=== PATIENT | female | born 1960 | race Caucasian/White ===

== ENCOUNTER 2016-11-23 14:39 | Inpatient (IN) | payer OTHER, MEDICARE ==
[~2016-11-23] VITALS: Ht 160 cm; Wt 132.5 kg
[2016-11-23 14:47] VITALS: BP 191/97; PULSE 115; RESP 16; TEMP 97.9; O2SAT 95
--- NOTE | 2016-11-23 16:07 | PD ---
HPI Chief Complaint: Neuro Symptoms/ Deficits Time Seen by Provider: 16:07 Travel History International Travel<30 days: No Contact w/Intl Traveler<30days: No Traveled to known affect area: No History of Present Illness HPI 56-year-old female came to the emergency room with history of headache and visual symptoms. Patient says this has been going on for past 2 days. She slept pretty much the entire day yesterday. Today when she did not feel better she decided to come to the emergency room. 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 However patient says that she started getting some vision back into her left eye as of couple hours ago. Her headache currently is 8 out of 10 and it is occipital. She is awake and answering questions appropriately. Patient was tachycardic in triage. Patient speech is clear and denies any gait issues. PFSH Past Medical History Narrative Medical List of her past medical, surgical, social and family history was reviewed from the nursing note. Hx Anticoagulant Therapy: Yes (plavix) Social History Tobacco Use: No Allergies-Medications (Allergen,Severity, Reaction): Coded Allergies: Lisinopril (Unverified Allergy, Mild, 11/23/16) Morphine (Unverified Allergy, Mild, 11/23/16) anaphylaxis Penicillin (Unverified Allergy, Mild, 11/23/16) Comments List of allergies reviewed from the nursing note. Reported Meds & Prescriptions Reported Meds & Active Scripts Active Reported Escitalopram (Escitalopram Oxalate) 20 Mg Tab 20 Mg PO DAILY Amlodipine (Amlodipine Besylate) 10 Mg Tab 10 Mg PO DAILY Narrative Medication Awaiting for the nurse to do a med reconciliation. Review of Systems Except as stated in HPI: all other systems reviewed are Neg Physical Exam Narrative GENERAL: Awake, alert, obese, anxious SKIN: Warm and dry. HEAD: Atraumatic. Normocephalic. EYES: Pupils equal and round. No scleral icterus. No injection or drainage. ENT: No nasal bleeding or discharge. Mucous membranes pink and moist. NECK: Trachea midline. No JVD. CARDIOVASCULAR: Regular rate and rhythm. No murmur appreciated. RESPIRATORY: No accessory muscle use. Clear to auscultation. Breath sounds equal bilaterally. GASTROINTESTINAL: Abdomen soft, non-tender, nondistended. Hepatic and splenic margins not palpable. MUSCULOSKELETAL: No obvious deformities. No clubbing. No cyanosis. No edema. NEUROLOGICAL: Awake and alert. No obvious cranial nerve deficits. Motor grossly within normal limits. Normal speech. NIH stroke score of 0 PSYCHIATRIC: Appropriate mood and affect; insight and judgment normal. Data Data Last Documented VS Orders Electrocardiogram (11/23/16 ) Bedside Glucose QUAN.AC&HS (11/23/16 14:54) Act Partial Throm Time (Ptt) (11/23/16 16:20) Complete Blood Count With Diff (11/23/16 16:20) Basic Metabolic Panel (Bmp) (11/23/16 16:20) Troponin I (11/23/16 16:20) Urinalysis - C+S If Indicated (11/23/16 16:20) Ct Brain W/O Iv Contrast(Rout) (11/23/16 16:20) Chest, Single Ap (11/23/16 16:20) Ecg Monitoring (11/23/16 16:20) Iv Access Insert/Monitor (11/23/16 16:20) Oximetry (11/23/16 16:20) Sodium Chloride 0.9% Flush (Ns Flush) (11/23/16 16:30) Sodium Chlor 0.9% 1000 Ml Inj (Ns 1000 M (11/23/16 16:30) Sodium Chlor 0.9% 1000 Ml Inj (Ns 1000 M (11/23/16 18:15) Admit Order (Ed Use Only) (11/23/16 19:24) Labs MDM Medical Decision Making Medical Screen Exam Complete: Yes Emergency Medical Condition: Yes Medical Record Reviewed: Yes Interpretation(s) Twelve-lead EKG was reviewed by me. Normal sinus rhythm, left axis deviation, tachycardia, nonspecific ST-T wave changes. Heart rate of 108 bpm. Differential Diagnosis TIA, CVA, intracranial bleed Narrative Course 7 PM blood test results of back. Patient has leukocytosis, hyperglycemia and renal insufficiency. She was given IV fluid bolus. Patient is on Plavix and aspirin and she took those this morning. CAT scan shows old infarct. I will admit her for TIA. Awaiting for the hospitalist to call back Procedures EKG Prior to Arrival: Yes Diagnosis Primary Impression: TIA (transient ischemic attack) Qualified Code: G45.9 - Transient cerebral ischemia, unspecified type Additional Impression: Headache Qualified Code: R51 - Acute nonintractable headache, unspecified headache type Admitting Information Admitting Physician Requests: Observation Scripts Insulin Detemir Inj (Levemir Inj)1,000 unit/ 10 ML Vial10 Units SQ HS #30 VIAL Ref 0 Do not mix with any other Insulin. Prov:Zari Fernandez MD 11/28/16 Insulin Aspart Inj (Novolog Inj)1,000 Unit/10 Ml Vial1-9 Units SQ ACHS #10 ML Ref 0 Max dose at bedtime:( )units; sugars less than 70,(0)units; sugars 150-199,(1) unit; sugars 200-249,(3) units; sugars 250-299,(5) units; sugars 300-349,(7) units; sugars greater than 349,(9) units Prov:Zari Fernandez MD 11/28/16 Parenteral Therapy Supplies (Sharpsafety Sharps Contai)1 Mis Mis #1 EA .ROUTE DIRECTED Ref 0 Prov:Zari Fernandez MD 11/28/16 Glucocom Test Strips 1 Lula Lula #100 Ea .route As Directed Prov:Zari Fernandez MD 11/28/16 Lancets 1 Mis Mis #1 EA .ROUTE DIRECTED Ref 0 Prov:Zari Fernandez MD 11/28/16 Insulin Syringe/U-100/31G X 5/16" 1 ml 1 Mis Mis #1 EA .ROUTE DIRECTED Ref 0 Prov:Zari Fernandez MD 11/28/16 Blood Glucose Monitoring W/Device (Glucocom Blood Glucose Mo W/Device)1 Kit Kit #1 Kit .route As Directed Prov:Zari Fernandez MD 11/28/16 Aspirin 325 Mg [id number] Mg PO DAILY #30 TAB Ref 0 Prov:Zari Fernandez MD 11/28/16 Enoxaparin Inj (Lovenox Inj)40 Mg/0.4 Ml Syr40 Mg SQ DAILY #10 SYRINGE Ref 0 Prov:Zari Fernandez MD 11/28/16 Warfarin 7.5 Mg Tab7.5 Mg PO DAILY #30 TAB Ref 0 Prov:Zari Fernandez MD 11/28/16 Metoprolol Tartrate 25 Mg Tab12.5 Mg PO Q8HR PRN (SBP>160, DBP>95, HR>65) #60 TAB Prov:Zari Fernandez MD 11/28/16 Atorvastatin (Lipitor)80 Mg Tab80 Mg PO HS #30 TAB Prov:Zari Fernandez MD 11/28/16 Art Singh MD Nov 23, 2016 16:07 Potassium Level 4.2 MEQ/L Chloride Level 98 MEQ/L Carbon Dioxide Level 26.6 MEQ/L Anion Gap 9 MEQ/L Blood Urea Nitrogen 14 MG/DL Creatinine 1.24 MG/DL Estimat Glomerular Filtration 45 ML/MIN Rate Random Glucose 324 MG/DL Calcium Level 9.6 MG/DL Troponin I LESS THAN 0.02 NG/ML MDM Medical Decision Making Medical Screen Exam Complete: Yes Emergency Medical Condition: Yes Medical Record Reviewed: Yes Interpretation(s) Twelve-lead EKG was reviewed by me. Normal sinus rhythm, left axis deviation, tachycardia, nonspecific ST-T wave changes. Heart rate of 108 bpm. Differential Diagnosis TIA, CVA, intracranial bleed Narrative Course 7 PM blood test results of back. Patient has leukocytosis, hyperglycemia and renal insufficiency. She was given IV fluid bolus. Patient is on Plavix and aspirin and she took those this morning. CAT scan shows old infarct. I will admit her for TIA. Awaiting for the hospitalist to call back Procedures EKG Prior to Arrival: Yes Diagnosis Primary Impression: TIA (transient ischemic attack) Qualified Code: G45.9 - Transient cerebral ischemia, unspecified type Additional Impression: Headache Qualified Code: R51 - Acute nonintractable headache, unspecified headache type Admitting Information Admitting Physician Requests: Observation Art Singh MD Nov 23, 2016 16:07
[2016-11-23 16:15] VITALS: BP 139/77; PULSE 103; RESP 16; O2SAT 97
[2016-11-23] MEDS ORDERED: SODIUM CHLOR 0.9% 1000 ML INJ 1,000 ML IV ONE ×2 (16:30→18:15)
[2016-11-23] MEDS ORDERED: SODIUM CHLORIDE 0.9% FLUSH 10 ML FLUSH IVF PRN (16:30)
--- NOTE | 2016-11-23 16:50 | RADRPT ---
EXAM DATE/TIME: 11/23/2016 16:31 [facility] COMPARISON: No previous studies available for comparison. INDICATIONS : Short of breath MEDICAL HISTORY : Cardiovascular disease. SURGICAL HISTORY : None. ENCOUNTER: Initial ACUITY: 2 days PAIN SCORE: 0/10 LOCATION: chest FINDINGS: A single view of the chest demonstrates the lungs to be symmetrically aerated without evidence of mas s, infiltrate or effusion. The cardiomediastinal contours are unremarkable. Osseous structures are intact. CONCLUSION: No acute disease. Gera Hoffman MD on November 23, 2016 at 16:48 Board Certified Radiologist. This report was verified electronically.
--- NOTE | 2016-11-23 17:11 | RADRPT ---
EXAM DATE/TIME: 11/23/2016 16:50 [facility] COMPARISON: No previous studies available for comparison. INDICATIONS : Persistent headache, left eye visual disturbances. RADIATION DOSE: 40.04 CTDIvol (mGy) MEDICAL HISTORY : None SURGICAL HISTORY : None. ENCOUNTER: Initial ACUITY: 2 days PAIN SCALE: 7/10 LOCATION: cranial TECHNIQUE: Multiple contiguous axial images were obtained of the head. Using automated exposure control and adj ustment of the mA and/or kV according to patient size, radiation dose was kept as low as reasonably a chievable to obtain optimal diagnostic quality images. FINDINGS: CEREBRUM: The ventricles are normal for age. Chronic changes with periventricular small vessel ischemic demyeli nation and bilateral old lacunar-type infarcts involving the basal ganglia and thalamic nuclei. Old r ight YARN WINDER infarct as well. No extra-axial fluid collections are seen. POSTERIOR FOSSA: The cerebellum and brainstem are intact. The 4th ventricle is midline. The cerebellopontine angle i s unremarkable. EXTRACRANIAL: The visualized portion of the orbits is intact. SKULL: The calvaria is intact. No evidence of skull fracture. CONCLUSION: 1. Chronic changes including periventricular small vessel ischemic demyelination in bilateral old bas al ganglia and thalamic lacunar type infarct. 2. Old right YARN WINDER infarct. This could produce a left visual field deficit which may explain current cl inical symptoms. 3. No acute intracranial process. Vlad Gonzales MD on November 23, 2016 at 17:06 Board Certified Radiologist. This report was verified electronically.
[2016-11-23 17:28] LABS: AUTOMATED NEUTROPHIL # 9.3 TH/MM3 (1.8-7.7); BASOPHIL # 0.1 TH/MM3 (0-0.2); BASOPHIL % 0.7 % (0.0-2.0); EOSINOPHIL # 0.2 TH/MM3 (0-0.4); EOSINOPHIL % 1.7 % (0.0-4.0); HEMATOCRIT 43.1 % (35.0-46.0); HEMO FLAGS DIFF FINAL; LYMPH % 25.8 % (9.0-44.0); LYMPHOCYTE # 3.6 TH/MM3 (1.0-4.8); MEAN CELL VOLUME 75.1 FL (80.0-100.0); MEAN CORPUSCULAR HEMOGLOBIN 25.3 PG (27.0-34.0); MEAN CORPUSCULAR HGB CONC 33.7 % (32.0-36.0); MONO % 5.1 % (0.0-8.0); NEUT % 66.7 % (16.0-70.0); PLATELET COUNT 357 TH/MM3 (150-450); RED BLOOD COUNT 5.74 MIL/MM3 (4.00-5.30); RED CELL DISTRIBUTION WIDTH 14.4 % (11.6-17.2)
[2016-11-23 17:44] LABS: APTT (PATIENT) 24.9 SEC (24.3-30.1)
[2016-11-23 17:58] LABS: ANION GAP 9 MEQ/L (5-15); BICARBONATE 26.6 MEQ/L (21.0-32.0); BLOOD UREA NITROGEN 14 MG/DL (7-18); CHLORIDE 98 MEQ/L (98-107); GLOMERULAR FILTRATION RATE 45 ML/MIN (>89); SODIUM (NA) 134 MEQ/L (136-145)
[2016-11-23 17:59] LABS: POTASSIUM 4.2 MEQ/L (3.5-5.1)
[2016-11-23] MEDS ORDERED: CLOP75TA PO (19:04)
[2016-11-23] MEDS ORDERED: AMLO10TA2 PO (19:04)
[2016-11-23 19:05] VITALS: O2SAT 98
[2016-11-23] MEDS ORDERED: ESCI20TA PO (19:05)
[2016-11-23 19:13] VITALS: BP 140/70; PULSE 98; RESP 18; O2SAT 96
[2016-11-23 19:44] LABS: BACTERIA, URINE RARE /hpf; BLOOD, URINE MOD (NEG); COMMENT (UR) CATH-CULTURE IND; CULTURE IF INDICATED CATH CULTURE IND; GLUCOSE,URINE 1000 mg/dL (NEG); KETONE, URINE 10 mg/dL (NEG); MUCUS URINE FEW /lpf (OCC); NITRITE,URINE NEG (NEG); PH, URINE 5.5 (5.0-8.5); SQUAMOUS EPITHELIAL CELL URINE 15 /hpf (0-5); URINE COLOR YELLOW (YELLW/STRAW)
[2016-11-23] MEDS ORDERED: DEXTROSE 50% IN WATER 50 ML VIAL(D50) IV PUSH PRN (19:45)
[2016-11-23] MEDS ORDERED: GLUCAGON 1 MG/ML VIAL OTHER PRN (19:45)
[2016-11-23] MEDS ORDERED: SODIUM CHLORIDE 0.9% FLUSH 10 ML FLUSH IV FLUSH PRN (19:45)
[2016-11-23] MEDS: INSULIN ASPART SUPPLEMENTAL SCALE SQ SCH (21:00)
[2016-11-23] MEDS: SODIUM CHLORIDE 0.9% FLUSH 10 ML FLUSH IV FLUSH SCH (21:00)
[2016-11-23 21:39] VITALS: BP 141/84; PULSE 96; RESP 20; TEMP 98; O2SAT 94
[2016-11-23 22:28] LABS: HEMOGLOBIN A1a 1.3 %; HEMOGLOBIN A1b 1.5 %; HEMOGLOBIN Ao 74.4 %; HEMOGLOBIN F 1.8 %; HEMOGLOBIN LA1C 3.7 %; HEMOGLOBIN P3 5.3 %
--- NOTE | 2016-11-23 23:01 | RADRPT ---
EXAM DATE/TIME: 11/23/2016 22:17 [facility] COMPARISON: No previous studies available for comparison. INDICATIONS : TIA. MEDICAL HISTORY : Hypertension. Hypercholesterolemia. TIA. SURGICAL HISTORY : Right knee. Vaginal ablation. ENCOUNTER: Subsequent ACUITY: 2 day PAIN SCORE: 3/10 LOCATION: cranial TECHNIQUE: Multiplanar, multisequence MRI of the brain was performed without contrast. FINDINGS: There is a small acute lacunar infarct in left basal ganglia. There are multiple remote infarcts invo lving the right occipital lobe and also small remote infarcts in the left frontal lobe, left parietal lobe. Moderate white matter ischemic changes. No mass effect or shift. No abnormal extra-axial fluid collections. Both globes are intact. CONCLUSION: 1. Small subcentimeter acute lacunar infarct left basal ganglia. 2. Multiple small remote infarcts involving right occipital lobe, left frontal lobe and left parietal lobe. 3. Moderate chronic white matter ischemic change. Benoit Ruth MD on November 23, 2016 at 22:56 Board Certified Radiologist. This report was verified electronically.
--- NOTE | 2016-11-23 23:54 | HHI.HP ---
[facility] Veronika Chinchilla MD Admission Diagnosis TIA, headache Diagnoses: (1) Acute lacunar infarction (2) Headache Chief Complaint: headache and visual changes Travel History International Travel<30 Days: No Contact w/Intl Traveler <30 Da: No Traveled to Known Affected Are: No History of Present Illness Ms. Galeana is a 56 year-old female with a history of CVA, hyperlipidemia, depression and hypertension who presented to the emergency room for evaluation of headache with visual impairment on 11/23/2016. Head CT shows chronic changes including periventricular small vessel ischemic demyelination and bilateral old basal ganglia and thalamus lacunar type infarct. Old right HOME INSPECTOR infarct (might produce left visual field deficit). No acute intracranial process. The patient is seen in the CDU. She and her provided the history. The patient woke up with severe posterior headache yesterday that progressively got worse and not better. She reports that because of a prior stroke, she had lost her left peripheral vision. She said her left peripheral vision was gone for 3 years and today it came back after she came to the hospital and while she was sitting in the waiting room. The patient's also reports that the patient slept all day on Sunday and Sunday. He says about a month ago, she had some trouble speaking and a syncopal episode. There is also report of loose stools for about 2 weeks. The patient is not sure if her stools are black or red colored. She denies any recent antibiotic usage. She denies hematuria, frequency, or dysuria. She does report some urgency with incontinence couple of nights ago which has now resolved. Denies fever but states she's felt warm. Denies localized weakness, paresthesias, chest pain, shortness of breath. She had dry heaves 2 days ago. Denies any history of diabetes, coronary artery disease liver or kidney problems , cancers, thyroid problems, seizures. She reports asthma without exacerbation since childhood. Was driven to ER in private vehicle. Review of Systems Except as stated in HPI: all other systems reviewed are Neg Past Family Social History Past Medical History Hypertension Post-CVA depression CVA Asthma without exacerbation since childhood Past Surgical History Cholecystectomy Vaginal ablation . Reported Medications Reported Meds & Active Scripts Active Reported Escitalopram (Escitalopram Oxalate) 20 Mg Tab 20 Mg PO DAILY Clopidogrel (Clopidogrel Bisulfate) 75 Mg Tab 75 Mg PO DAILY Amlodipine (Amlodipine Besylate) 10 Mg Tab 10 Mg PO DAILY . Allergies: Coded Allergies: Lisinopril (Unverified Allergy, Mild, 11/23/16) Morphine (Unverified Allergy, Mild, 11/23/16) anaphylaxis Penicillin (Unverified Allergy, Mild, 11/23/16) Active Ordered Medications Current Medications Sodium Chloride 2 ml 2 ml UNSCH PRN IVF FLUSH AFTER USING IV ACCESS; Start at 16:30; Stop 11/23/16 at 19:45; Status DC Sodium Chloride 1,000 ml @ 999 mls/hr BOLUS ONCE IV Last administered on 11/23 17:19; Start 11/23/16 at 16:30; Stop 11/23/16 at 17:30; Status DC Sodium Chloride (NS 1000 ml Inj) 1,000 ml @ 999 mls/hr BOLUS ONCE IV Last administered on 11/23/16 19:12; Start 11/23/16 at 18:15; Stop 11/23/16 at 19:15 ; Status DC Sodium Chloride (NS Flush) 2 ml BID IV FLUSH Last administered on 11/23/16 21: 00; Start 11/23/16 at 21:00 Sodium Chloride (NS Flush) 2 ml UNSCH PRN IV FLUSH FLUSH AFTER USING IV ACCESS ; Start 11/23/16 at 19:45 Insulin Aspart (NovoLOG SUPPLEMENTAL SCALE) 1 ACHS SLIDING SCALE SQ Last administered on 11/23/16 21:00; Start 11/23/16 at 21:00 Dextrose (D50w (Vial) Inj) 25 ml UNSCH PRN IV PUSH HYPOGLYCEMIA-SEE COMMENTS; Start 11/23/16 at 19:45 Glucagon (Glucagon Inj) 1 mg UNSCH PRN OTHER HYPOGLYCEMIA-SEE COMMENTS; Start 11/23/16 at 19:45 . Family History Youngest sister from breast cancer . Social History Tobacco: denies Alcohol: denies Illicit Drugs: denies Patient recently relocated from [place] . Physical Exam Vital Signs Vital Signs Date Time Temp Pulse Resp B/P Pulse Ox O2 Delivery O2 Flow Rate FiO2 11/23/16 21:39 98.0 96 20 141/84 94 11/23/16 19:13 98 18 140/70 96 Room Air 11/23/16 19:05 98 Room Air 11/23/16 16:15 103 16 139/77 97 11/23/16 14:47 97.9 115 16 191/97 95 Physical Exam GENERAL: This is a well-nourished, well-developed patient, in no apparent distress. SKIN: No rashes, ecchymoses or lesions. Cool and dry. HEAD: Atraumatic. Normocephalic. EYES: No scleral icterus. No injection or drainage. ENT: Nose without bleeding, purulent drainage. NECK: Trachea midline. No JVD or lymphadenopathy. CARDIOVASCULAR: Regular rate and rhythm without murmurs, gallops, or rubs. Unequal swelling in legs: left > right. RESPIRATORY: Clear to auscultation. Breath sounds equal bilaterally. No wheezes , rales, or rhonchi. GASTROINTESTINAL: Abdomen soft, non-tender, nondistended. No guarding. MUSCULOSKELETAL: Extremities without clubbing, cyanosis, or edema. No calf tenderness. NEUROLOGICAL: Awake and alert. Motor and sensory grossly within normal limits. Normal speech. Laboratory Laboratory Tests Test 11/23/16 17:16 White Blood Count 14.0 Red Blood Count 5.74 Hemoglobin 14.5 Hematocrit 43.1 Mean Corpuscular Volume 75.1 Mean Corpuscular Hemoglobin 25.3 Mean Corpuscular Hemoglobin 33.7 Concent Red Cell Distribution Width 14.4 Platelet Count 357 Mean Platelet Volume 8.6 Neutrophils (%) (Auto) 66.7 Lymphocytes (%) (Auto) 25.8 Monocytes (%) (Auto) 5.1 Eosinophils (%) (Auto) 1.7 Basophils (%) (Auto) 0.7 Neutrophils # (Auto) 9.3 Lymphocytes # (Auto) 3.6 Monocytes # (Auto) 0.7 Eosinophils # (Auto) 0.2 Basophils # (Auto) 0.1 CBC Comment DIFF FINAL Differential Comment Activated Partial 24.9 Thromboplast Time Urine Color YELLOW Urine Turbidity HAZY Urine pH 5.5 Urine Specific [place] 1.026 Urine Protein 30 Urine Glucose (UA) 1000 Urine Ketones 10 Urine Occult Blood MOD Urine Nitrite NEG Urine Bilirubin NEG Urine Urobilinogen LESS THAN 2.0 Urine Leukocyte Esterase LARGE Urine RBC 8 Urine WBC 4 Urine Squamous Epithelial 15 Cells Urine Bacteria RARE Urine Mucus FEW Microscopic Urinalysis Comment CATH-CULTURE IND Sodium Level 134 Potassium Level 4.2 Chloride Level 98 Carbon Dioxide Level 26.6 Anion Gap 9 Blood Urea Nitrogen 14 Creatinine 1.24 Estimat Glomerular Filtration 45 Rate Random Glucose 324 Hemoglobin A1c 11.8 Calcium Level 9.6 Troponin I LESS THAN 0.02 Date/Time Procedure Status Source Growth 11/23/16 17:16 Urine Culture Received Urine Catheterized Urine Pending Result Diagram: 11/23/16 1716 11/23/16 1716 Imaging Last Impressions Head CT 11/23/16 1620 Signed Impressions: Service Date/Time: November 16:50 - CONCLUSION: 1. Chronic changes including periventricular small vessel ischemic demyelination in bilateral old basal ganglia and thalamic lacunar type infarct. 2. Old right HOME INSPECTOR infarct. This could produce a left visual field deficit which may explain current clinical symptoms. 3. No acute intracranial process. Vlad Gonzales MD Chest X-Ray 11/23/16 1620 Signed Impressions: Service Date/Time: November 16:31 - CONCLUSION: No acute disease. Gera Hoffman MD Brain MRI 11/23/16 0000 Signed Impressions: Service Date/Time: November 22:17 - CONCLUSION: 1. Small subcentimeter acute lacunar infarct left basal ganglia. 2. Multiple small remote infarcts involving right occipital lobe, left frontal lobe and left parietal lobe. 3. Moderate chronic white matter ischemic change. Benoit Ruth MD . Assessment and Plan Problem List: (1) Acute lacunar infarction ICD Code: I63.9 Status: Acute (2) Headache ICD Code: R51 Status: Acute (3) Leukocytosis ICD Code: D72.829 Status: Acute (4) Hyperglycemia ICD Code: R73.9 Status: Acute (5) Type 2 diabetes mellitus ICD Code: E11.9 Status: Chronic (6) Acute renal insufficiency ICD Code: N28.9 Status: Acute Assessment and Plan Ms. Galeana is a 56 year-old female with a history of CVA, hyperlipidemia, depression and hypertension who presented to the emergency room for evaluation of headache with visual impairment on 11/23/2016. Acute lacunar infarct Headache with visual impairment - Head CT shows chronic changes including periventricular small vessel ischemic demyelination and bilateral old basal ganglia and thalamus lacunar type infarct. Old right HOME INSPECTOR infarct (might produce left visual field deficit). No acute intracranial process. - Continuous cardiac telemetry to monitor for cardiac arrhythmia - OT, PT, and ST - Check echocardiogram to evaluate patients cardiac structure and function - Carotid ultrasound to rule out carotid atherosclerosis - MRI brain without contrast - Monitor neuro checks and vital signs every 2 hours 12 then every 4 hours - Check lipid profile and hemoglobin A1c - Diet nothing by mouth until patient passes bedside swallowing evaluation by nursing - Consults stroke Navigator - Neurology consultation - Heparin drip - allow for permissive hypertension - keep HOB flat to promote cerebral perfusion Leukocytosis- stress response versus infection - WBC 14.0 with elevated neutrophil number - Abnormal urinalysis with urinary culture pending - follow results - Repeat CBC in a.m. and follow trends Hyperglycemia - Blood glucose 324 - Check hemoglobin A1c- follow results - Accu-Cheks before meals and at bedtime with low-dose NovoLog sliding scale coverage - Hypoglycemia treatment protocol ordered - Monitor blood glucose trends and adjust treatments as needed - diabetic diet - 1999 ADA conservative carbs Acute renal insufficiency - BUN 14, creatinine 1.24, estimated GFR 45 - Has received NS boluses totaling 2 liters in ER - Monitor I and Os qshift - Repeat BMP in a.m. and follow trends in renal indices - Avoid nephrotoxins DVT prophylaxis - heparin drip Written by Aliza Hanks, acting as scribe for Dr. Sheffield on 11/23/16 at 23:36. All or portions of this note were transcribed by scribe [Aliza Hanks]. I, Dr. Tam Sheffield personally performed the history, physical exam, and medical decision making; and confirmed the accuracy of the information in the transcribed note. Authenticated by Dr. Tam Sheffield on 11/23/16 at 23:36. MRI result reviewed toward end of visit: Small subcentimeter acute lacunar infarct left basal ganglia. - changed status from observation to inpatient Discussed Condition With ER physician, RN, patient, patient's . Problem Qualifiers (1) Headache: Qualified Code: R51 - Acute nonintractable headache, unspecified headache type (2) Type 2 diabetes mellitus: Aliza Hanks Nov 23, 2016 23:54 Tam Sheffield MD Nov 24, 2016 09:21
[2016-11-24] MEDS ORDERED: HEPARIN-D5W INJ 250 ML IV SCH
--- NOTE | 2016-11-24 00:08 | RADRPT ---
EXAM DATE/TIME: 11/23/2016 23:03 [facility] COMPARISON: No previous studies available for comparison. INDICATIONS : Transient ischemic attack. MEDICAL HISTORY : Hypercholesterolemia. Hypertension. Anticoagulant therapy, Plavix. Depression. Transient ischemic a ttacks. SURGICAL HISTORY : Cholecystectomy. ENCOUNTER: Initial ACUITY: 1 day PAIN SCORE: 0/10 LOCATION: Bilateral neck PEAK SYSTOLIC VELOCITIES (cm/sec): ICA/CCA RATIO: Right: 0.8 Left: 0.5 ICA: Right: 68 Left: 56 CCA: Right: 90 Left: 103 ECA: Right: 132 Left: 150 VERTEBRAL: Right: 49 antegrade Left: 54 antegrade Elevated flow velocities and ICA/CCA ratios have been found to correlate with increased degrees of vessel stenosis, calculated as percentage of diameter relative to a normal segment of distal ICA/CCA FINDINGS: RIGHT CAROTID: No significant stenosis is visualized. The waveforms are within normal limits. LEFT CAROTID: No significant stenosis is visualized. The waveforms are within normal limits. VERTEBRAL ARTERIES: Antegrade flow is seen in both vertebral arteries. MISCELLANEOUS: None. CONCLUSION: 1. Patent carotid arteries bilaterally. 2. Antegrade flow involving both vertebral arteries. Jose Campos Jr., MD on November 24, 2016 at 0:04 Board Certified Radiologist. This report was verified electronically.
[2016-11-24 01:46] LABS: APTT (PATIENT) 26.2 SEC (24.3-30.1)
--- NOTE | 2016-11-24 02:02 | RADRPT ---
EXAM DATE/TIME: 11/24/2016 00:59 [facility] COMPARISON: No previous studies available for comparison. INDICATIONS : Bilateral leg edema. MEDICAL HISTORY : Hypercholesterolemia. Hypertension. Strokes. Anticoagulant therapy, Plavix. Depression. SURGICAL HISTORY : Cholecystectomy. ENCOUNTER: Initial ACUITY: 1 day PAIN SCORE: 0/10 LOCATION: Bilateral leg. TECHNIQUE: Venous ultrasound of the left and right leg was performed from the inguinal ligament to the proximal calf. Real-time, color Doppler and spectral tracing, compression and augmentation techniques were us ed. FINDINGS: RIGHT LEG: There is normal compressibility of the deep venous system from the inguinal region to the proximal ca lf. No echogenic clot is seen in the lumen of the common femoral, femoral, popliteal, and posterior tibial veins. There is a normal response of the venous system to proximal and distal augmentation an d respiration. LEFT LEG: There is normal compressibility of the deep venous system from the inguinal region to the proximal ca lf. No echogenic clot is seen in the lumen of the common femoral, femoral, popliteal, and posterior tibial veins. There is a normal response of the venous system to proximal and distal augmentation an d respiration. CONCLUSION: Normal examination. Jose Campos Jr., MD on November 24, 2016 at 1:59 Board Certified Radiologist. This report was verified electronically.
[2016-11-24 03:45] VITALS: BP 130/65; PULSE 86; RESP 20; TEMP 98.2; O2SAT 93
[2016-11-24] MEDS: INSULIN ASPART SUPPLEMENTAL SCALE SQ SCH ×3 (07:00→22:17)
[2016-11-24 07:48] VITALS: BP 146/70; PULSE 81; RESP 19; TEMP 98.3; O2SAT 94
--- NOTE | 2016-11-24 08:16 | PD.CONS ---
History of Present Illness Service Neurology Consult Requested By medical Reason for Consult tia, headache Primary Care Physician Veronika Chinchilla MD History of Present Illness 56 year-old female presents for evaluation of occipital cantu x 2 days. throbbing, associated with fatigue. improved this am. no associated features. no significant photo/phonophobia. no weakness, no sensory changes, no vertigo. hx of previous stroke, 3 years ago with left visual field loss. had mri, echo with bubble jet study, and states no clear cause found except possibly 2/2 htn. takes plavix daily for it. on disability for stroke. feels well this am. Review of Systems Except as stated in HPI: all other systems reviewed are Neg Past Family Social History Past Medical History Hypertension Post-CVA depression CVA Asthma without exacerbation since childhood Past Surgical History Cholecystectomy Vaginal ablation . Reported Medications Reported Meds & Active Scripts Active Reported Escitalopram (Escitalopram Oxalate) 20 Mg Tab 20 Mg PO DAILY Clopidogrel (Clopidogrel Bisulfate) 75 Mg Tab 75 Mg PO DAILY Amlodipine (Amlodipine Besylate) 10 Mg Tab 10 Mg PO DAILY . Allergies: Coded Allergies: Lisinopril (Unverified Allergy, Mild, 11/23/16) Morphine (Unverified Allergy, Mild, 11/23/16) anaphylaxis Penicillin (Unverified Allergy, Mild, 11/23/16) Family History m,f with hx of strokes Social History Tobacco: denies Alcohol: denies Illicit Drugs: denies Patient recently relocated from [place] Review of Systems All other ROS: ROS reviewed as documented in chart Past Family Social History Allergies: Coded Allergies: Lisinopril (Unverified Allergy, Mild, 11/23/16) Morphine (Unverified Allergy, Mild, 11/23/16) anaphylaxis Penicillin (Unverified Allergy, Mild, 11/23/16) Active Ordered Medications Current Medications Medications (Trade) Dose Ordered Sig/Janice Route Start Time Stop Time Status Last Admin (NS Flush) 2 ml BID IV FLUSH 11/23/16 21:00 11/23/16 21:00 (NS Flush) 2 ml UNSCH PRN IV FLUSH 11/23/16 19:45 (D50w (Vial) Inj) 25 ml UNSCH PRN IV PUSH 11/23/16 19:45 Glucagon 1 mg 1 mg UNSCH PRN OTHER 11/23/16 19:45 (Heparin-D5W Inj) 250 ml @ 0 mls/hr TITRATE IV 11/24/16 00:00 11/24/16 00:21 Exam I&O / VS Vital Signs Date Time Temp Pulse Resp B/P Pulse Ox O2 Delivery O2 Flow Rate FiO2 11/24/16 07:48 98.3 81 19 146/70 94 11/24/16 03:45 98.2 86 20 130/65 93 11/23/16 21:39 98.0 96 20 141/84 94 11/23/16 19:13 98 18 140/70 96 Room Air 11/23/16 19:05 98 Room Air 11/23/16 16:15 103 16 139/77 97 11/23/16 14:47 97.9 115 16 191/97 95 General: Alert and Oriented, No acute distress Eye: EOMI Respiratory: Non-labored respirations Cardiology: Normal rate Neurologic: Alert, Oriented, Normal sensory, Normal motor, Normal DTR's Psychiatric: Cooperative, Appropriate mood & affect, Normal judgement, Non- suicidal Exam Comments ox 3. articulate, follows, neck supple. left HH, face sym, no focal weakness, msr sym, no clonus, planter flexor Review/Management Diagnosis/Plan: (1) Acute ischemic left MCA stroke Plan: multiple strokes, bihemispheric failed plavix previous w/u in [place] negative, including bubble jet study i'm concerned about a hypercoag state/embolic cause recs coumadin; bridge with aspirin until inr >1.8, then stop aspirin and hep subq check mra brain lizette with cardiology hypercoag panel p.t. wt loss/exercise/dm, htn/lipid control, ldl <70 (2) Chronic ischemic right ALTERATION HAND stroke Plan: 2013 tx'd in [facility] on plavix (3) Chronic ischemic left ALTERATION HAND stroke (4) Type 2 diabetes mellitus Plan: hba1c 11 uncontrolled (5) HTN (hypertension) (6) Depression Plan: post-stroke related Problem Qualifiers (1) Type 2 diabetes mellitus: (2) HTN (hypertension): Qualified Code: I10 - Essential hypertension (3) Depression: Qualified Code: F32.9 - Depression, unspecified depression type Abdoulaye Wong MD Nov 24, 2016 08:16
[2016-11-24 08:41] LABS: APTT (PATIENT) 26.8 SEC (24.3-30.1)
[2016-11-24 08:56] LABS: HDL CHOLESTEROL 29.3 MG/DL (40.0-60.0)
[2016-11-24] MEDS: SODIUM CHLORIDE 0.9% FLUSH 10 ML FLUSH IV FLUSH SCH ×2 (09:00→21:00)
[2016-11-24 09:49] LABS: PROTHROMBIN TIME - PATIENT 10.8 SEC (9.8-11.6)
--- NOTE | 2016-11-24 12:01 | HHI.PR ---
Subjective Remarks Follow up for headache, acute CVA. The patient reports feeling better today. Her headache was located in the occipital area, however resolved today. She also states her vision is back to normal. She has no other medical complaints at this time. Objective Vitals Vital Signs Date Time Temp Pulse Resp B/P Pulse Ox O2 Delivery O2 Flow Rate FiO2 11/24/16 07:48 98.3 81 19 146/70 94 11/24/16 03:45 98.2 86 20 130/65 93 11/23/16 21:39 98.0 96 20 141/84 94 11/23/16 19:13 98 18 140/70 96 Room Air 11/23/16 19:05 98 Room Air 11/23/16 16:15 103 16 139/77 97 11/23/16 14:47 97.9 115 16 191/97 95 Result Diagram: 11/23/16 1716 11/23/16 171 Imaging Last Impressions Lower Extremity Ultrasound 11/24/16 0000 Signed Impressions: Service Date/Time: Thursday, November 24, 2016 00:59 - CONCLUSION: Normal examination. Jose Campos Jr., MD Head CT 11/23/16 1620 Signed Impressions: Service Date/Time: November 16:50 - CONCLUSION: 1. Chronic changes including periventricular small vessel ischemic demyelination in bilateral old basal ganglia and thalamic lacunar type infarct. 2. 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 This could produce a left visual field deficit which may explain current clinical symptoms. 3. No acute intracranial process. Vlad Gonzales MD Chest X-Ray 11/23/16 1620 Signed Impressions: Service Date/Time: November 16:31 - CONCLUSION: No acute disease. Gera Hoffman MD Carotid Artery Ultrasound 11/23/16 0000 Signed Impressions: Service Date/Time: November 23:03 - CONCLUSION: 1. Patent carotid arteries bilaterally. 2. Antegrade flow involving both vertebral arteries. Jose Campos Jr., MD Brain MRI 11/23/16 0000 Signed Impressions: Service Date/Time: November 22:17 - CONCLUSION: 1. Small subcentimeter acute lacunar infarct left basal ganglia. 2. Multiple small remote infarcts involving right occipital lobe, left frontal lobe and left parietal lobe. 3. Moderate chronic white matter ischemic change. Benoit Ruth MD Objective Remarks GENERAL: Well-nourished, well-developed pleasant obese middle aged female patient in [facility]. SKIN: Warm and dry. No rash. HEENT: Normocephalic. Atraumatic. Pupils equal and round. No scleral icterus. No injection or drainage. Mucous membranes pink and moist. NECK: Supple. Trachea midline. CARDIOVASCULAR: Regular rate and rhythm. S1, S2 noted. No murmur appreciated. RESPIRATORY: No accessory muscle use. Clear to auscultation. Breath sounds equal bilaterally. GASTROINTESTINAL: Abdomen soft, non-tender, nondistended. Normoactive bowel sounds x4. MUSCULOSKELETAL: No obvious deformities. Extremities without clubbing, cyanosis , or edema. NEUROLOGICAL: Awake and alert. No obvious cranial nerve deficits. Motor grossly within normal limits. 5/5 muscle strength in bilateral upper and lower extremities. Normal speech. No facial droop, lid lag, tongue deviation. PSYCHIATRIC: Appropriate mood and affect; insight and judgment normal. Medications and IVs Current Medications Medications (Trade) Dose Ordered Sig/Janice Route Start Time Stop Time Status Last Admin (NS Flush) 2 ml BID IV FLUSH 11/23/16 21:00 11/23/16 21:00 (NS Flush) 2 ml UNSCH PRN IV FLUSH 11/23/16 19:45 (D50w (Vial) Inj) 25 ml UNSCH PRN IV PUSH 11/23/16 19:45 (Glucagon Inj) 1 mg UNSCH PRN OTHER 11/23/16 19:45 (Ecotrin Ec) 325 mg DAILY PO 11/24/16 09:00 Warfarin Sodium 5 mg 5 mg DAILY@16 PO 11/24/16 16:00 UNV (Coumadin Consult Pharmacy) 0 ml @ 0 mls/hr UNSCH XX 11/24/16 08:15 (Heparin Inj) 5,000 units BID SQ 11/24/16 09:00 Urinary Catheter: No Vascular Central Line Catheter: No A/P Problem List: (1) Acute lacunar infarction ICD Code: I63.9 Status: Acute (2) Headache ICD Code: R51 Status: Acute (3) Leukocytosis ICD Code: D72.829 Status: Acute (4) Hyperglycemia ICD Code: R73.9 Status: Acute (5) Type 2 diabetes mellitus ICD Code: E11.9 Status: Chronic (6) Acute renal insufficiency ICD Code: N28.9 Status: Acute Assessment and Plan 56 year-old female with a history of CVA, hyperlipidemia, depression and hypertension who presented to the emergency room for evaluation of headache with visual impairment on 11/23/2016. 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 No acute findings - Brain MRI images reviewed, shows small subcentimeter acute lacunar infarct L basal ganglia; multiple small remote infarcts R occipital, L front, L parietal - Monitor on telemetry, NIHSS, Neuro checks, kept HOB x24 hrs flat to promote cerebral perfusion, allow permissive hypertension for now - OT, PT, and ST - Check echocardiogram - Carotid ultrasound unremarkable - Lipid profile with Triglycerides 207, Cholesterol 201, LDL 130 (goal < 70) and hemoglobin A1c 11.8 - Check LFTs and start Lipitor 80mg hs - Consults stroke Navigator, rehab medicine - Neurology consultation - Heparin drip, per Neuro: start coumadin; bridge with aspirin until INR >1.8, then stop aspirin and hep subq - Neuro requests RHEA, consulted cardiology - hypercoagulable work up in process Leukocytosis- stress response versus UTI - WBC 14.0 with elevated neutrophils - Abnormal urinalysis, see below - Repeat CBC in a.m. and follow trends UTI - urine culture with Group B Strep - patient with PCN allergy, will start Ciprofloxacin 500mg po q12h x3days - follow final urine culture Diabetes Mellitus, diagnosed this admission - Blood glucose 324, Hemoglobin A1c- 11.8 - Accu-Cheks and cover with NovoLog sliding scale coverage - Hypoglycemia treatment protocol ordered - diabetic diet - 1999 ADA conservative carbs - still uncontrolled, increased SSI to medium dose and start Levemir 10u hs - Consult tobacco educator and personal lines appraiser JOSETTE - BUN 14, creatinine 1.24, estimated GFR 45 - s/p IVF NS boluses totaling 2 liters in ER - Monitor I and Os qshift - Repeat BMP in a.m. and follow trends in renal indices - Avoid nephrotoxins DVT prophylaxis - heparin Written by Meaghan Lovelace, acting as scribe for Dr. Fernandez on 11/24/16 at 11:55. All or portions of this note were transcribed by scribe Meaghan Radu. I, Dr. Zari Fernandez personally performed the history, physical exam, and medical decision making; and confirmed the accuracy of the information in the transcribed note. Authenticated by Dr. Zari Fernandez on 11/24/16 at 11:55. Discharge Planning Admit to inpatient, possible discharge in 3-4 days. Problem Qualifiers (1) Headache: Qualified Code: R51 - Acute nonintractable headache, unspecified headache type (2) Type 2 diabetes mellitus: Meaghan Lovelace PA-C Nov 24, 2016 12:01 Zari Fernandez MD Nov 24, 2016 18:42
[2016-11-24] MEDS: ASPIRIN EC 325 MG TABEC PO SCH (12:07)
[2016-11-24] MEDS: HEPARIN SODIUM - SQ 10,000 UNITS/ML VIAL SQ SCH ×2 (12:07→22:48)
--- NOTE | 2016-11-24 13:44 | RADRPT ---
EXAM DATE/TIME: 11/24/2016 11:24 [facility] COMPARISON: US CAROTID ARTERIES, November 23, 2016, 23:03. MRI BRAIN W/O CONTRAST, November 23, 2016, 22:17. INDICATIONS : CVA. MEDICAL HISTORY : Hypertension. SURGICAL HISTORY : Rt knee arthroscopy. ENCOUNTER: Initial ACUITY: 2 day PAIN SCORE: 2/10 LOCATION: head Please note a normal MRA of the brain does not entirely exclude the possibility of a small aneurysm, nor the possibility of distal intracranial vessel disease. TECHNIQUE: 3D time of flight MRA was performed. Source images, multiplanar STS MIP, and 3D volume MIP reconstru ctions were reviewed. FINDINGS: The exam demonstrates areas of signal dropout in the M1 segment on the left and the posterior cerebra ls bilaterally. This is probably secondary to motion artifact. No large or central vessel occlusion i dentified. CONCLUSION: 1. No large or central vessel occlusion identified. 2. Patchy areas of signal dropout in the left M1 segment and the posterior cerebrals bilaterally prob ably related to motion artifact. If symptoms persist, CT angiography could be performed for more defi nitive assessment Elias Bowen MD on November 24, 2016 at 13:35 Board Certified Radiologist. This report was verified electronically.
[2016-11-24 15:32] VITALS: BP 145/68; PULSE 98; RESP 20; TEMP 98.4; O2SAT 94
--- NOTE | 2016-11-24 15:32 | HHI.PR ---
Addendum to Inpatient Note Addendum Reason: Additional Documentation Additional Information I have received request for RHEA. Patient has not been NPO. RHEA will be performed Sunday. Seun Turner MD Nov 24, 2016 15:32
[2016-11-24] MEDS: WARFARIN SOD 5 MG TAB PO SCH (17:36)
[2016-11-24] MEDS: ESCITALOPRAM OXALATE 20 MG TAB PO SCH (17:36)
--- NOTE | 2016-11-24 17:42 | MG ---
cc: BERNARD CASTELLANOS MD Lab No: [id number] Date: 11/24/16 Age: 56 Sex: F Race: 62 A 56-year-old with a history of headache, visual symptoms, previous stroke. Posterior rhythm demonstrates 8-10 Hz activity, 20-40 microvolts low amplitude beta in the frontal channels. Good anterior-posterior gradient. Asymmetric right occipital region slowing noted. Good EEG variability reactivity. Theta and occasional delta intrusion suggestive of drowsy state. Reduced driving with photic stimulation. Single EKG showing sinus rhythm. INTERPRETATION Mild right posterior hemisphere slowing. No active seizures. Clinical correlation. MD XIOMARA Reddy/ /5:03 PM /5:35 PM
[2016-11-24] MEDS: CIPROFLOXACIN 500 MG TAB PO SCH (17:49)
--- NOTE | 2016-11-24 19:02 | EC ---
Study Study Date:11/24/2016 STUDY CONCLUSIONS SUMMARY LEFT VENTRICLE: The cavity size was normal. Wall thickness was normal. Systolic function was normal. The estimated ejection fraction was 60%. Wall motion was normal; there were no regional wall motion abnormalities. If LV function is below 40, please consider prescribing an ACEI or ARB or document rationale for non-use. PROCEDURE DATA STUDY STATUS: Elective. Procedure: Transthoracic echocardiography. Image quality was good. Scanning was performed from the parasternal, apical, and subcostal acoustic windows. Study completion: The patient tolerated the procedure well. Transthoracic echocardiography. M-mode, complete 2D, complete spectral Doppler, and color Doppler. Patient status: Inpatient. CARDIAC ANATOMY LEFT VENTRICLE: The cavity size was normal. Wall thickness was normal. Systolic function was normal. The estimated ejection fraction was 60%. Wall motion was normal; there were no regional wall motion abnormalities. AORTIC VALVE: Trileaflet; normal thickness leaflets. Doppler: Transvalvular velocity was within the normal range. There was no stenosis. No regurgitation. Valve area: 1.28cm^2(VTI). Valve area: 1.18cm^2 (Vmax). Mean gradient: 10mm Hg (S). Peak gradient: 18mm Hg (S). AORTA: Aortic root: The aortic root was normal in size. MITRAL VALVE: Structurally normal valve. Doppler: Transvalvular velocity was within the normal range. There was no evidence for stenosis. Trace regurgitation. LEFT ATRIUM: The atrium was normal in size. RIGHT VENTRICLE: The cavity size was normal. Wall thickness was normal. PULMONIC VALVE: Doppler: Transvalvular velocity was within the normal range. There was no evidence for stenosis. No regurgitation. TRICUSPID VALVE: Structurally normal valve. Doppler: Transvalvular velocity was within the normal range. Trace regurgitation. PULMONARY ARTERY: The main pulmonary artery was normal-sized. Systolic pressure was within the normal range. RIGHT ATRIUM: The atrium was normal in size. PERICARDIUM: There was no pericardial effusion. SYSTEMIC VEINS: Inferior vena cava: The vessel was normal in size. BASIC MEASUREMENTS ADULT NORMAL Left ventricle LV internal dimension, ED, chordal level, 50.7 mm 43-52 PLAX LV internal dimension, ES, chordal level, 36.9 mm 23-38 PLAX Fractional shortening, chordal level, PLAX *27 % >29 LV posterior wall thickness, ED 8.72 mm IVS/LVPW ratio, ED 1.13 <1.3 Ventricular septum Septal thickness, ED 9.83 mm Aortic valve Leaflet separation 25 mm 15-26 Right ventricle RV internal dimension, ED, PLAX 22.1 mm 19-38 BASIC MEASUREMENTS ADULT NORMAL Aortic valve Leaflet separation 25 mm 15-26 Aorta Root diameter, ED 28 mm 20-37 Left atrium Anterior-posterior dimension, ES 33 mm 19-40 LA/aortic root ratio 1.18 DOPPLER MEASUREMENTS ADULT NORMAL Aortic valve Peak velocity, S 212 cm/s Mean velocity, S 149 cm/s VTI, S 36.1 cm Mean gradient, S 10 mm Hg Peak gradient, S 18 mm Hg Valve area, VTI 1.28 cm^2 Valve area, Vmax 1.18 cm^2 Mitral valve Peak E-wave velocity 69.6 cm/s Peak A-wave velocity 116 cm/s Peak E/A ratio 0.6 LEGEND: Mean values are shown as u=mean value. Asterisk (*) cazares values outside specified normal range. Prepared and signed by Zion English [id number]
[2016-11-24 19:05] LABS: INDIRECT BILIRUBIN 0.3 MG/DL (0.0-0.8); TOTAL BILIRUBIN ADULT 0.4 MG/DL (0.2-1.0)
--- NOTE | 2016-11-24 19:05 | PD.CONS ---
HPI Service Rehabilitation Medicine Consult Requested By Abdoulaye Wong MD Reason for Consult Comprehensive rehabilitation evaluation. Primary Care Physician Veronika Chinchilla MD History of Present Illness Deanna Galeana is a 56 year old right hand dominant female who present to [facility] 11/23/16 with headache and visual symptoms. Head CT showed chronic changes periventricular small vessel ischemic demyelination, bilateral basal ganglia and thalamic type lacunar infarcts and old right [employer] infarcts. MRI of brain showed small subcentimeter acute left basal ganglia infarct; multiple small remote infarcts right occipital, left frontal and left pareital areas. Carotid ultrasound negative. MRA showed patchy signal dropout left M1 segment and posterior cerebrals bilaterally probably motion artifact. She was started on Coumadin. RHEA pending. Review of Systems Constitutional: COMPLAINS OF: Fatigue Eyes: COMPLAINS OF: Vision loss (Improved in the left hemifield with this hosptialization per her report) Ears, nose, mouth, throat: DENIES: Hearing loss Respiratory: DENIES: Shortness of breath Cardiovascular: DENIES: Chest pain Gastrointestinal: DENIES: Abdominal pain Integumentary: DENIES: Pruritus Hematologic/lymphatic: DENIES: Bruising Immunologic/allergic: DENIES: Urticaria Neurologic: DENIES: Headache, Localized weakness, Paresthesias, Speech Problems Psychiatric: DENIES: Confusion Past Family Social History Allergies: Coded Allergies: Lisinopril (Unverified Allergy, Mild, 11/23/16) Morphine (Unverified Allergy, Mild, 11/23/16) anaphylaxis Penicillin (Unverified Allergy, Mild, 11/23/16) Past Medical History Previous CVA 2013 with left visual field loss Hyperlipidemia HTN Depression Past Surgical History Cholecystectomy Vaginal Ablation Current Medications Current Medications Medications (Trade) Dose Ordered Sig/Janice Route Start Time Stop Time Status Last Admin (NS Flush) 2 ml BID IV FLUSH 11/23/16 21:00 11/24/16 09:00 (NS Flush) 2 ml UNSCH PRN IV FLUSH 11/23/16 19:45 (D50w (Vial) Inj) 25 ml UNSCH PRN IV PUSH 11/23/16 19:45 (Glucagon Inj) 1 mg UNSCH PRN OTHER 11/23/16 19:45 (Ecotrin Ec) 325 mg DAILY PO 11/24/16 09:00 11/24/16 12:07 Warfarin Sodium 5 mg 5 mg DAILY@16 PO 11/24/16 16:00 11/24/16 17:36 (Coumadin Consult Pharmacy) 0 ml @ 0 mls/hr UNSCH XX 11/24/16 08:15 (Heparin Inj) 5,000 units BID SQ 11/24/16 09:00 11/24/16 12:07 (Lexapro) 20 mg DAILY PO 11/24/16 15:00 11/24/16 17:36 (Lipitor) 80 mg HS PO 11/24/16 21:00 (Cipro) 500 mg Q12HR PO 11/24/16 18:00 11/27/16 17:59 11/24/16 17:49 (Levemir Inj) 10 units HS SQ 11/24/16 21:00 Family History Mother and Father: stroke Social History Lives in [place], [place] with . Prior to admission independent with mobility and ADL's Exam I&O / VS Vital Signs Date Time Temp Pulse Resp B/P Pulse Ox O2 Delivery O2 Flow Rate FiO2 11/24/16 15:32 98.4 98 20 145/68 94 11/24/16 07:48 98.3 81 19 146/70 94 11/24/16 03:45 98.2 86 20 130/65 93 11/23/16 21:39 98.0 96 20 141/84 94 11/23/16 19:13 98 18 140/70 96 Room Air 11/23/16 19:05 98 Room Air General: No acute distress Respiratory: Lungs CTA, Non-labored respirations, BS equal Gastrointestinal: Positive Bowel Sounds, Non-Distended, Non-Tender Cardiovascular: Normal rate, Regular Rhythm Musculoskeletal: ROM (Within functional limits) Psychiatric: Cooperative, Appropriate mood & affect Orientation: oriented to Self, oriented to Place, oriented to Time, oriented to Situation Neurologic: Pupils (PERRLA), EOM (intact), Visual Concepcion (Left hemianopia), Facial Symmetry (Symmetric), Other (No ulnar drift) Motor: Right Upper Extremity (5/5), Left Upper Extremity (5/5), Right Lower Extremity (5/5 except hip flexion 4+/5), Left Lower Extremity (5/5 except hip flexion 4+/5) Sensory Intact to light touch DTRs: Normal Babinski: Negative Clonus: Negative Assessment and Plan Diagnosis: (1) Acute ischemic left MCA stroke Assessment 1. Small left basal ganglia lacunar CVA Plan 1. Ambulating independently with PT 2. OT has evaluated ADL's and independent 3. Regular diet per ST recommendations 4. No ongoing rehabilitation needs identified for discharge. Rehab plan of care discussed with patient and and questions answered 5. Followup as needed Thank you for this consult. Moraima Browne MD Nov 24, 2016 19:05
[2016-11-24] MEDS: ATORVASTATIN 80 MG TAB PO SCH (21:00)
[2016-11-24 21:01] VITALS: BP 156/84; PULSE 101; RESP 17; TEMP 98.5; O2SAT 96
[2016-11-24] MEDS: INSULIN DETEMIR 100 UNITS/ML VIAL SQ SCH (22:46)
[2016-11-25 01:10] VITALS: BP 191/106; PULSE 109; RESP 17; TEMP 98; O2SAT 96
[2016-11-25 02:15] VITALS: BP 158/91
[2016-11-25] MEDS: INSULIN ASPART SUPPLEMENTAL SCALE SQ SCH ×4 (05:59→21:08)
[2016-11-25 06:02] VITALS: BP_SYST 124; BP_SYST 170; BP_DIAS 59; BP_DIAS 88; PULSE 68; PULSE 87; RESP 16; RESP 17; TEMP 98; O2SAT 94; O2SAT 96
[2016-11-25 08:37] VITALS: BP 175/85; PULSE 82; RESP 18; TEMP 97.8; O2SAT 96
[2016-11-25] MEDS: SODIUM CHLORIDE 0.9% FLUSH 10 ML FLUSH IV FLUSH SCH ×2 (09:00→21:00)
[2016-11-25] MEDS: ASPIRIN EC 325 MG TABEC PO SCH (09:32)
[2016-11-25] MEDS: ESCITALOPRAM OXALATE 20 MG TAB PO SCH (09:32)
[2016-11-25] MEDS: CIPROFLOXACIN 500 MG TAB PO SCH ×2 (09:32→21:07)
[2016-11-25] MEDS: HEPARIN SODIUM - SQ 10,000 UNITS/ML VIAL SQ SCH ×2 (09:33→21:08)
--- NOTE | 2016-11-25 11:09 | HHI.PR ---
Review/Management Diagnosis/Plan: (1) Acute ischemic left MCA stroke Plan: multiple strokes, bihemispheric failed plavix previous w/u in [place] negative, including bubble jet study i'm concerned about a hypercoag state/embolic cause uncontrolled dm hyperlipidemia recs doing well inr 1.0 coumadin; bridge with aspirin until inr >1.8, then stop aspirin and hep subq lizette-sunday per cardiology hypercoag panel-pending p.t. 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 Plan: 2014 tx'd in [facility] on plavix (3) Chronic ischemic left SHEET IRONWORKER stroke (4) Type 2 diabetes mellitus Plan: hba1c 11 uncontrolled (5) HTN (hypertension) (6) Depression Plan: post-stroke related Subjective Subjective Comments No acute events reported; feels alot better No headache No chest pain No dyspnea Active Medications Current Medications Medications (Trade) Dose Ordered Sig/Janice Route Start Time Stop Time Status Last Admin (NS Flush) 2 ml BID IV FLUSH 11/23/16 21:00 11/25/16 09:00 (NS Flush) 2 ml UNSCH PRN IV FLUSH 11/23/16 19:45 (D50w (Vial) Inj) 25 ml UNSCH PRN IV PUSH 11/23/16 19:45 (Glucagon Inj) 1 mg UNSCH PRN OTHER 11/23/16 19:45 (Ecotrin Ec) 325 mg DAILY PO 11/24/16 09:00 11/25/16 09:32 Warfarin Sodium 5 mg 5 mg DAILY@16 PO 11/24/16 16:00 11/24/16 17:36 (Coumadin Consult Pharmacy) 0 ml @ 0 mls/hr UNSCH XX 11/24/16 08:15 (Heparin Inj) 5,000 units BID SQ 11/24/16 09:00 11/25/16 09:33 (Lexapro) 20 mg DAILY PO 11/24/16 15:00 11/25/16 09:32 (Lipitor) 80 mg HS PO 11/24/16 21:00 11/24/16 21:00 (Cipro) 500 mg Q12HR PO 11/24/16 18:00 11/27/16 17:59 11/25/16 09:32 (Levemir Inj) 10 units HS SQ 11/24/16 21:00 11/24/16 22:46 Allergies Allergies Coded Allergies Lisinopril (Unverified Allergy, Mild, 11/23/16) Morphine (Unverified Allergy, Mild, 11/23/16) Penicillin (Unverified Allergy, Mild, 11/23/16) Review of Systems All other ROS: ROS reviewed as documented in chart Exam I&O / VS 11/24/16 11/24/16 11/25/16 15:00 23:00 07:00 Intake Total 240 ml 240 ml Balance 240 ml 240 ml Intake Oral 240 ml 240 ml # Voids 1 2 Vital Signs Date Time Temp Pulse Resp B/P Pulse Ox O2 Delivery O2 Flow Rate FiO2 11/25/16 08:37 97.8 82 18 175/85 96 11/25/16 06:02 98.0 87 17 170/88 96 11/25/16 02:15 158/91 11/25/16 01:10 98.0 109 17 191/106 96 11/24/16 21:01 98.5 101 17 156/84 96 11/24/16 15:32 98.4 98 20 145/68 94 General: Alert and Oriented, No acute distress Eye: EOMI Respiratory: Non-labored respirations Cardiology: Normal rate Neurologic: Alert, Oriented, Normal sensory, Normal motor, Normal DTR's Psychiatric: Cooperative, Appropriate mood & affect, Normal judgement, Non- suicidal Exam Comments ox 3. articulate, follows, neck supple. left HH, face sym, no focal weakness, msr sym, no clonus, planter flexor, gait stable, romberg negative Objective Micro and Labs Laboratory Tests Test 11/24/16 11:11 Erythrocyte Sedimentation Rate 40 Total Bilirubin 0.4 Direct Bilirubin 0.1 Indirect Bilirubin 0.3 Aspartate Amino Transf 16 (AST/SGOT) Alanine Aminotransferase 32 (ALT/SGPT) Alkaline Phosphatase 160 C-Reactive Protein 2.10 Total Protein 6.6 Albumin 2.8 Date/Time Procedure Status Source Growth 11/23/16 17:16 Urine Culture - Final Complete Urine Catheterized Urine Group B Beta Strep Problem Qualifiers (1) Type 2 diabetes mellitus: (2) HTN (hypertension): Qualified Code: I10 - Essential hypertension (3) Depression: Qualified Code: F32.9 - Depression, unspecified depression type Abdoulaye Wong MD Nov 25, 2016 11:09
--- NOTE | 2016-11-25 11:19 | EKG ---
Date Performed: 11/23/2016 Time Performed: 14:57:28 PTAGE: 56 years EKG: SINUS TACHYCARDIA LEFT VENTRICULAR HYPERTROPHY AND ST-T CHANGE ABNORMAL ECG NO PREVIOUS TRACING DOCTOR: Pedro Clinton Interpretating Date/Time 11/25/2016 11:16:13
--- NOTE | 2016-11-25 11:20 | HHI.PR ---
Subjective Remarks In the bed. No cp, sob. No new motor deficit/ sensory deficit./ Patient says vision in the left eye has improved. No n/v/d/c. Objective Vitals Vital Signs Date Time Temp Pulse Resp B/P Pulse Ox O2 Delivery O2 Flow Rate FiO2 11/25/16 08:37 97.8 82 18 175/85 96 11/25/16 06:02 98.0 87 17 170/88 96 11/25/16 02:15 158/91 11/25/16 01:10 98.0 109 17 191/106 96 11/24/16 21:01 98.5 101 17 156/84 96 11/24/16 15:32 98.4 98 20 145/68 94 I/O 11/24/16 11/24/16 11/24/16 11/25/16 11/25/16 11/25/16 07:00 15:00 23:00 07:00 15:00 23:00 Intake Total 240 ml 240 ml Balance 240 ml 240 ml Intake Oral 240 ml 240 ml # Voids 1 1 2 Result Diagram: 11/23/16 1716 11/23/16 1716 Imaging Last Impressions Lower Extremity Ultrasound 11/24/16 0000 Signed Impressions: Service Date/Time: Thursday, November 24, 2016 00:59 - CONCLUSION: Normal examination. Jose Campos Jr., MD Head Magnetic Resonance Angiography 11/24/16 0000 Signed Impressions: Service Date/Time: Thursday, November 24, 2016 11:24 - CONCLUSION: 1. No large or central vessel occlusion identified. 2. Patchy areas of signal dropout in the left M1 segment and the posterior cerebrals bilaterally probably related to motion artifact. If symptoms persist, CT angiography could be performed for more definitive assessment Elias Bowen MD Head CT 11/23/16 1620 Signed Impressions: Service Date/Time: November 16:50 - CONCLUSION: 1. Chronic changes including periventricular small vessel ischemic demyelination in bilateral old basal ganglia and thalamic lacunar type infarct. 2. 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 This could produce a left visual field deficit which may explain current clinical symptoms. 3. No acute intracranial process. Vlad Gonzales MD Chest X-Ray 11/23/16 1620 Signed Impressions: Service Date/Time: November 16:31 - CONCLUSION: No acute disease. Gera Hoffman MD Carotid Artery Ultrasound 11/23/16 0000 Signed Impressions: Service Date/Time: November 23:03 - CONCLUSION: 1. Patent carotid arteries bilaterally. 2. Antegrade flow involving both vertebral arteries. Jose Campos Jr., MD Brain MRI 11/23/16 0000 Signed Impressions: Service Date/Time: November 22:17 - CONCLUSION: 1. Small subcentimeter acute lacunar infarct left basal ganglia. 2. Multiple small remote infarcts involving right occipital lobe, left frontal lobe and left parietal lobe. 3. Moderate chronic white matter ischemic change. Benoit Ruth MD Objective Remarks GENERAL: Well-nourished, well-developed pleasant obese middle aged female patient in [facility]. SKIN: Warm and dry. No rash. HEENT: Normocephalic. Atraumatic. Pupils equal and round. No scleral icterus. No injection or drainage. Mucous membranes pink and moist. NECK: Supple. Trachea midline. CARDIOVASCULAR: Regular rate and rhythm. S1, S2 noted. No murmur appreciated. RESPIRATORY: No accessory muscle use. Clear to auscultation. Breath sounds equal bilaterally. GASTROINTESTINAL: Abdomen soft, non-tender, nondistended. Normoactive bowel sounds x4. MUSCULOSKELETAL: No obvious deformities. Extremities without clubbing, cyanosis , or edema. NEUROLOGICAL: Awake and alert. No obvious cranial nerve deficits. Motor grossly within normal limits. 5/5 muscle strength in bilateral upper and lower extremities. Normal speech. No facial droop, lid lag, tongue deviation. PSYCHIATRIC: Appropriate mood and affect; insight and judgment normal. A/P Problem List: (1) Acute lacunar infarction ICD Code: I63.9 Status: Acute (2) Headache ICD Code: R51 Status: Acute (3) Leukocytosis ICD Code: D72.829 Status: Acute (4) Hyperglycemia ICD Code: R73.9 Status: Acute (5) Type 2 diabetes mellitus ICD Code: E11.9 Status: Chronic (6) Acute renal insufficiency ICD Code: N28.9 Status: Acute Assessment and Plan 56 year-old female with a history of CVA, hyperlipidemia, depression and hypertension who presented to the emergency room for evaluation of headache with visual impairment on 11/23/2016. 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 No acute findings - Brain MRI images reviewed, shows small subcentimeter acute lacunar infarct L basal ganglia; multiple small remote infarcts R occipital, L front, L parietal - Monitor on telemetry, NIHSS, Neuro checks, kept HOB x24 hrs flat to promote cerebral perfusion, allow permissive hypertension for now - OT, PT, and ST - Check echocardiogram - Carotid ultrasound unremarkable - Lipid profile with Triglycerides 207, Cholesterol 201, LDL 130 (goal < 70) and hemoglobin A1c 11.8 - Check LFTs and start Lipitor 80mg hs - Consults stroke Navigator, rehab medicine - Neurology consultation, Dr Eli appreciate recs - Heparin drip, per Neuro: continue coumadin; bridge with aspirin until INR > 1.8, then stop aspirin and hep subq.Monitor INR, pharm consult for coumadin - Neuro requests RHEA, consulted cardiology, plan for RHEA on Sunday - hypercoagulable work up in process Leukocytosis- stress response versus UTI - WBC 14.0 with elevated neutrophils - Abnormal urinalysis, see below - Repeat CBC in a.m. and follow trends UTI - urine culture with Group B Strep - patient with PCN allergy, will start Ciprofloxacin 500mg po q12h x3days - follow final urine culture Diabetes Mellitus, diagnosed this admission - Blood glucose 324, Hemoglobin A1c- 11.8 - Accu-Cheks and cover with NovoLog sliding scale coverage - Hypoglycemia treatment protocol ordered - diabetic diet - 1999 ADA conservative carbs - still uncontrolled, increased SSI to medium dose and start Levemir 10u hs - Consult clinical staff educator and dressmaker garment fitter JOSETTE - BUN 14, creatinine 1.24, estimated GFR 45 - s/p IVF NS boluses totaling 2 liters in ER - Monitor I and Os qshift - Repeat BMP in a.m. and follow trends in renal indices - Avoid nephrotoxins DVT prophylaxis - heparin DC when improved and cleared by consultants. POss Sunday after RHEA presumed is negative and if INR > 1.8 Problem Qualifiers (1) Headache: Qualified Code: R51 - Acute nonintractable headache, unspecified headache type (2) Type 2 diabetes mellitus: Zari Fernandez MD Nov 25, 2016 11:20
[2016-11-25 13:07] VITALS: BP 148/74; PULSE 84; RESP 18; TEMP 97.9; O2SAT 93
[2016-11-25] MEDS: WARFARIN SOD 5 MG TAB PO SCH (15:52)
[2016-11-25 20:00] VITALS: BP 171/90; PULSE 92; RESP 18; TEMP 98.8; O2SAT 94
[2016-11-25] MEDS: ATORVASTATIN 80 MG TAB PO SCH (21:07)
[2016-11-25] MEDS: INSULIN DETEMIR 100 UNITS/ML VIAL SQ SCH (21:08)
[2016-11-26] VITALS: BP 141/87; PULSE 86; RESP 18; TEMP 98.4; O2SAT 95
[2016-11-26 04:00] VITALS: BP 168/95; PULSE 82; RESP 18; TEMP 97.6; O2SAT 95
[2016-11-26] MEDS: INSULIN ASPART SUPPLEMENTAL SCALE SQ SCH ×4 (06:52→22:01)
[2016-11-26 07:23] LABS: HEMATOCRIT 39.2 % (35.0-46.0); MEAN CELL VOLUME 75.4 FL (80.0-100.0); MEAN CORPUSCULAR HEMOGLOBIN 24.3 PG (27.0-34.0); MEAN CORPUSCULAR HGB CONC 32.2 % (32.0-36.0); PLATELET COUNT 272 TH/MM3 (150-450); RED BLOOD COUNT 5.19 MIL/MM3 (4.00-5.30); RED CELL DISTRIBUTION WIDTH 14.1 % (11.6-17.2); WHITE BLOOD COUNT 10.3 TH/MM3 (4.0-11.0)
[2016-11-26 07:24] LABS: PROTHROMBIN TIME - PATIENT 11.1 SEC (9.8-11.6)
[2016-11-26 08:16] LABS: REVIEW FLAG FINAL
[2016-11-26 08:21] VITALS: BP 174/78; PULSE 75; RESP 18; TEMP 97.3; O2SAT 95
[2016-11-26] MEDS: SODIUM CHLORIDE 0.9% FLUSH 10 ML FLUSH IV FLUSH SCH ×2 (09:00→21:00)
[2016-11-26] MEDS: ASPIRIN EC 325 MG TABEC PO SCH (09:20)
[2016-11-26] MEDS: ESCITALOPRAM OXALATE 20 MG TAB PO SCH (09:20)
[2016-11-26] MEDS: CIPROFLOXACIN 500 MG TAB PO SCH ×2 (09:20→22:01)
[2016-11-26] MEDS: HEPARIN SODIUM - SQ 10,000 UNITS/ML VIAL SQ SCH ×2 (09:20→22:01)
--- NOTE | 2016-11-26 09:37 | HHI.PR ---
Addendum to Inpatient Note Addendum Reason: Additional Documentation Additional Information Request received for RHEA to evaluate CVA. No loose teeth. No trouble swallowing. No history of adverse reaction to anesthesia. Informed consent obtained by me for RHEA tomorrow AM - time to be determined. Seun Turner MD Nov 26, 2016 09:37
--- NOTE | 2016-11-26 10:26 | HHI.PR ---
Review/Management Diagnosis/Plan: (1) Acute ischemic left MCA stroke Plan: multiple strokes, bihemispheric failed plavix previous w/u in [place] negative, including bubble jet study i'm concerned about a hypercoag state/embolic cause uncontrolled dm hyperlipidemia recs doing well inr 1.0 add folate for homocysteinemia coumadin; bridge with aspirin until inr >1.8, then stop aspirin and hep subq s/b d/w pt of coumadin lizette-sunday per cardiology hypercoag panel-pending d/c planning from neuro in am after lizette and outpatient f/u in 3-4 weeks; will need pcp/card to follow inr levels p.t. wt loss/exercise/dm, htn/lipid control, ldl <70 (2) Chronic ischemic right REPAIR MECHANIC stroke Plan: 2013 tx'd in [facility] on plavix (3) Chronic ischemic left REPAIR MECHANIC stroke (4) Type 2 diabetes mellitus Plan: hba1c 11 uncontrolled (5) HTN (hypertension) (6) Depression Plan: post-stroke related Subjective Subjective Comments No acute events reported No headache No chest pain No dyspnea Active Medications Current Medications Medications (Trade) Dose Ordered Sig/Janice Route Start Time Stop Time Status Last Admin (NS Flush) 2 ml BID IV FLUSH 11/23/16 21:00 11/26/16 09:00 (NS Flush) 2 ml UNSCH PRN IV FLUSH 11/23/16 19:45 (D50w (Vial) Inj) 25 ml UNSCH PRN IV PUSH 11/23/16 19:45 (Glucagon Inj) 1 mg UNSCH PRN OTHER 11/23/16 19:45 (Ecotrin Ec) 325 mg DAILY PO 11/24/16 09:00 11/26/16 09:20 Warfarin Sodium 5 mg 5 mg DAILY@16 PO 11/24/16 16:00 11/25/16 15:52 (Coumadin Consult Pharmacy) 0 ml @ 0 mls/hr UNSCH XX 11/24/16 08:15 (Heparin Inj) 5,000 units BID SQ 11/24/16 09:00 11/26/16 09:20 (Lexapro) 20 mg DAILY PO 11/24/16 15:00 11/26/16 09:20 (Lipitor) 80 mg HS PO 11/24/16 21:00 11/25/16 21:07 (Cipro) 500 mg Q12HR PO 11/24/16 18:00 11/27/16 17:59 11/26/16 09:20 (Levemir Inj) 10 units HS SQ 11/24/16 21:00 11/25/16 21:08 Allergies Allergies Coded Allergies Lisinopril (Unverified Allergy, Mild, 11/23/16) Morphine (Unverified Allergy, Mild, 11/23/16) Penicillin (Unverified Allergy, Mild, 11/23/16) Review of Systems All other ROS: ROS reviewed as documented in chart Exam I&O / VS 11/25/16 11/25/16 11/26/16 15:00 23:00 07:00 Intake Total 360 ml Balance 360 ml Intake Oral 360 ml # Voids 2 2 Vital Signs Date Time Temp Pulse Resp B/P Pulse Ox O2 Delivery O2 Flow Rate FiO2 11/26/16 08:21 97.3 75 18 174/78 95 11/26/16 04:00 97.6 82 18 168/95 95 11/26/16 00:00 98.4 86 18 141/87 95 11/25/16 20:00 98.8 92 18 171/90 94 11/25/16 13:07 97.9 84 18 148/74 93 General: Alert and Oriented, No acute distress Eye: EOMI Respiratory: Non-labored respirations Cardiology: Normal rate Neurologic: Alert, Oriented, Normal sensory, Normal motor, Normal DTR's Psychiatric: Cooperative, Appropriate mood & affect, Normal judgement, Non- suicidal Exam Comments ox 3. articulate, follows, neck supple. left HH, face sym, no focal weakness, msr sym, no clonus, planter flexor, gait stable, romberg negative Objective Micro and Labs Laboratory Tests Test 11/26/16 06:49 White Blood Count 10.3 Red Blood Count 5.19 Hemoglobin 12.6 Hematocrit 39.2 Mean Corpuscular Volume 75.4 Mean Corpuscular Hemoglobin 24.3 Mean Corpuscular Hemoglobin 32.2 Concent Red Cell Distribution Width 14.1 Platelet Count 272 Mean Platelet Volume 8.6 Prothrombin Time 11.1 Prothromb Time International 1.0 Ratio Date/Time Procedure Status Source Growth 11/23/16 17:16 Urine Culture - Final Complete Urine Catheterized Urine Group B Beta Strep Problem Qualifiers (1) Type 2 diabetes mellitus: (2) HTN (hypertension): Qualified Code: I10 - Essential hypertension (3) Depression: Qualified Code: F32.9 - Depression, unspecified depression type Abdoulaye Wong MD Nov 26, 2016 10:26
[2016-11-26] MEDS: FOLIC ACID 1 MG TAB PO SCH (10:53)
[2016-11-26 12:15] VITALS: BP 148/85; PULSE 79; RESP 19; TEMP 96.7; O2SAT 95
--- NOTE | 2016-11-26 12:33 | HHI.PR ---
Subjective Remarks In bed. Says vision is better. No new or worsening deficit. Denies headache. No n/v/d/c. Says she knows how to inject heparin or lovenox because she has done it before. INT is 1 today . Will give extra dose of coumadin today. Objective Vitals Vital Signs Date Time Temp Pulse Resp B/P Pulse Ox O2 Delivery O2 Flow Rate FiO2 11/26/16 12:15 96.7 79 19 148/85 95 11/26/16 08:21 97.3 75 18 174/78 95 11/26/16 04:00 97.6 82 18 168/95 95 11/26/16 00:00 98.4 86 18 141/87 95 11/25/16 20:00 98.8 92 18 171/90 94 11/25/16 13:07 97.9 84 18 148/74 93 I/O 11/25/16 11/25/16 11/25/16 11/26/16 11/26/16 11/26/16 07:00 15:00 23:00 07:00 15:00 23:00 Intake Total 240 ml 360 ml Balance 240 ml 360 ml Intake Oral 240 ml 360 ml # Voids 2 2 2 Result Diagram: 11/26/16 0649 11/23/16 1716 Imaging Last Impressions Lower Extremity Ultrasound 11/24/16 0000 Signed Impressions: Service Date/Time: Thursday, November 24, 2016 00:59 - CONCLUSION: Normal examination. Jose Campos Jr., MD Head Magnetic Resonance Angiography 11/24/16 0000 Signed Impressions: Service Date/Time: Thursday, November 24, 2016 11:24 - CONCLUSION: 1. No large or central vessel occlusion identified. 2. Patchy areas of signal dropout in the left M1 segment and the posterior cerebrals bilaterally probably related to motion artifact. If symptoms persist, CT angiography could be performed for more definitive assessment Elias Bowen MD Head CT 11/23/16 1620 Signed Impressions: Service Date/Time: November 16:50 - CONCLUSION: 1. Chronic changes including periventricular small vessel ischemic demyelination in bilateral old basal ganglia and thalamic lacunar type infarct. 2. 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 This could produce a left visual field deficit which may explain current clinical symptoms. 3. No acute intracranial process. Vlad Gonzales MD Chest X-Ray 11/23/16 1620 Signed Impressions: Service Date/Time: November 16:31 - CONCLUSION: No acute disease. Gera Hoffman MD Carotid Artery Ultrasound 11/23/16 0000 Signed Impressions: Service Date/Time: November 23:03 - CONCLUSION: 1. Patent carotid arteries bilaterally. 2. Antegrade flow involving both vertebral arteries. Jose Campos Jr., MD Brain MRI 11/23/16 0000 Signed Impressions: Service Date/Time: November 22:17 - CONCLUSION: 1. Small subcentimeter acute lacunar infarct left basal ganglia. 2. Multiple small remote infarcts involving right occipital lobe, left frontal lobe and left parietal lobe. 3. Moderate chronic white matter ischemic change. Benoit Ruth MD Objective Remarks GENERAL: Well-nourished, well-developed pleasant obese middle aged female patient in [facility]. SKIN: Warm and dry. No rash. HEENT: Normocephalic. Atraumatic. Pupils equal and round. No scleral icterus. No injection or drainage. Mucous membranes pink and moist. NECK: Supple. Trachea midline. CARDIOVASCULAR: Regular rate and rhythm. S1, S2 noted. No murmur appreciated. RESPIRATORY: No accessory muscle use. Clear to auscultation. Breath sounds equal bilaterally. GASTROINTESTINAL: Abdomen soft, non-tender, nondistended. Normoactive bowel sounds x4. MUSCULOSKELETAL: No obvious deformities. Extremities without clubbing, cyanosis , or edema. NEUROLOGICAL: Awake and alert. No obvious cranial nerve deficits. Motor grossly within normal limits. 5/5 muscle strength in bilateral upper and lower extremities. Normal speech. No facial droop, lid lag, tongue deviation. PSYCHIATRIC: Appropriate mood and affect; insight and judgment normal. A/P Problem List: (1) Acute lacunar infarction ICD Code: I63.9 Status: Acute (2) Headache ICD Code: R51 Status: Acute (3) Leukocytosis ICD Code: D72.829 Status: Acute (4) Hyperglycemia ICD Code: R73.9 Status: Acute (5) Type 2 diabetes mellitus ICD Code: E11.9 Status: Chronic (6) Acute renal insufficiency ICD Code: N28.9 Status: Acute Assessment and Plan 56 year-old female with a history of CVA, hyperlipidemia, depression and hypertension who presented to the emergency room for evaluation of headache with visual impairment on 11/23/2016. CVA - Acute Lacunar Infarct Headache with visual impairment - Head CT images reviewed, shows bilateral old basal ganglia and thalamus lacunar type infarct; Old right COMPLIANCE INVESTIGATOR infarct (might produce left visual field deficit). No acute findings - Brain MRI images reviewed, shows small subcentimeter acute lacunar infarct L basal ganglia; multiple small remote infarcts R occipital, L front, L parietal - Monitor on telemetry, NIHSS, Neuro checks, kept HOB x24 hrs flat to promote cerebral perfusion, allow permissive hypertension for now - OT, PT, and ST - Check echocardiogram - Carotid ultrasound unremarkable - Lipid profile with Triglycerides 207, Cholesterol 201, LDL 130 (goal < 70) and hemoglobin A1c 11.8 - Check LFTs and start Lipitor 80mg hs - Consults stroke Navigator, rehab medicine - Neurology consultation, Dr Eli appreciate recs - Heparin drip, per Neuro: continue coumadin; bridge with aspirin until INR > 1.8, then stop aspirin and hep subq.Monitor INR, pharm consult for coumadin - Neuro requests RHEA, consulted cardiology, plan for RHEA on Sunday - hypercoagulable work up in process - No need to hold anticoagulation before RHEA Leukocytosis- stress response versus UTI - WBC 14.0 with elevated neutrophils - Abnormal urinalysis, see below - Repeat CBC in a.m. and follow trends UTI - urine culture with Group B Strep - patient with PCN allergy, will start Ciprofloxacin 500mg po q12h x3days - follow final urine culture Diabetes Mellitus, diagnosed this admission - Blood glucose 324, Hemoglobin A1c- 11.8 - Accu-Cheks and cover with NovoLog sliding scale coverage - Hypoglycemia treatment protocol ordered - diabetic diet - 1999 ADA conservative carbs - still uncontrolled, increased SSI to medium dose and start Levemir 10u hs - Consult java developer with security clearance and economic development director JOSETTE - BUN 14, creatinine 1.24, estimated GFR 45 - s/p IVF NS boluses totaling 2 liters in ER - Monitor I and Os qshift - Repeat BMP in a.m. and follow trends in renal indices - Avoid nephrotoxins DVT prophylaxis - heparin DC when improved and cleared by consultants. Poss Sunday after RHEA presumed is negative and if INR > 1.8 Patient also says she is comfortable and knows how to self administer heprin or lovenox shots. Problem Qualifiers (1) Headache: Qualified Code: R51 - Acute nonintractable headache, unspecified headache type (2) Type 2 diabetes mellitus: Zari Fernandez MD Nov 26, 2016 12:33
[2016-11-26] MEDS: WARFARIN SOD 7.5 MG TAB PO SCH (15:21)
[2016-11-26 16:26] VITALS: BP 175/85; PULSE 77; RESP 18; TEMP 98.2; O2SAT 96
[2016-11-26 20:00] VITALS: BP 169/95; PULSE 72; RESP 20; TEMP 98.3; O2SAT 98
[2016-11-26] MEDS: INSULIN DETEMIR 100 UNITS/ML VIAL SQ SCH (22:01)
[2016-11-26] MEDS: ATORVASTATIN 80 MG TAB PO SCH (22:01)
[2016-11-27] VITALS: BP 154/83; PULSE 68; RESP 20; TEMP 98; O2SAT 97
[2016-11-27 04:00] VITALS: BP 173/79; PULSE 81; RESP 18; TEMP 96.2; O2SAT 93
[2016-11-27] MEDS: INSULIN ASPART SUPPLEMENTAL SCALE SQ SCH ×4 (05:28→22:49)
[2016-11-27 08:03] VITALS: BP 178/94; PULSE 74; RESP 20; TEMP 97.1; O2SAT 94
[2016-11-27 08:20] LABS: INTERNATIONAL NORMALIZED RATIO 1.2 RATIO; PROTHROMBIN TIME - PATIENT 12.8 SEC (9.8-11.6)
[2016-11-27] MEDS: ASPIRIN EC 325 MG TABEC PO SCH (09:51)
[2016-11-27] MEDS: ESCITALOPRAM OXALATE 20 MG TAB PO SCH (09:51)
[2016-11-27] MEDS: FOLIC ACID 1 MG TAB PO SCH (09:51)
[2016-11-27] MEDS: CIPROFLOXACIN 500 MG TAB PO SCH (09:51)
[2016-11-27] MEDS: HEPARIN SODIUM - SQ 10,000 UNITS/ML VIAL SQ SCH ×2 (09:51→22:49)
[2016-11-27] MEDS: SODIUM CHLORIDE 0.9% FLUSH 10 ML FLUSH IV FLUSH SCH ×2 (09:52→21:00)
[2016-11-27] MEDS ORDERED: PROPOFOL 200 MG/20 ML AMP IV ONE (12:58)
[2016-11-27] MEDS ORDERED: MIDAZOLAM HCL 2 MG/2 ML VIAL ONE (13:34)
--- NOTE | 2016-11-27 14:14 | HHI.PR ---
Subjective Remarks Patient in bed. Says she is walking without problems. Denies new deficit. No weakness. No sob, chest pain. Plan for RHEA today. INT is still subtherapeutic at 1.2 today. Objective Vitals Vital Signs Date Time Temp Pulse Resp B/P Pulse Ox O2 Delivery O2 Flow Rate FiO2 11/27/16 08:03 97.1 74 20 178/94 94 11/27/16 04:00 96.2 81 18 173/79 93 11/27/16 00:00 98.0 68 20 154/83 97 11/26/16 20:00 98.3 72 20 169/95 98 11/26/16 16:26 98.2 77 18 175/85 96 I/O 11/26/16 11/26/16 11/26/16 11/27/16 11/27/16 11/27/16 07:00 15:00 23:00 07:00 15:00 23:00 # Voids 2 Result Diagram: 11/26/16 0649 11/23/16 1716 Imaging Last Impressions Lower Extremity Ultrasound 11/24/16 0000 Signed Impressions: Service Date/Time: Thursday, November 24, 2016 00:59 - CONCLUSION: Normal examination. Jose Campos Jr., MD Head Magnetic Resonance Angiography 11/24/16 0000 Signed Impressions: Service Date/Time: Thursday, November 24, 2016 11:24 - CONCLUSION: 1. No large or central vessel occlusion identified. 2. Patchy areas of signal dropout in the left M1 segment and the posterior cerebrals bilaterally probably related to motion artifact. If symptoms persist, CT angiography could be performed for more definitive assessment Elias Bowen MD Head CT 11/23/16 1620 Signed Impressions: Service Date/Time: November 16:50 - CONCLUSION: 1. Chronic changes including periventricular small vessel ischemic demyelination in bilateral old basal ganglia and thalamic lacunar type infarct. 2. Old right DECK HAND infarct. This could produce a left visual field deficit which may explain current clinical symptoms. 3. No acute intracranial process. Vlad Gonzales MD Chest X-Ray 11/23/16 1620 Signed Impressions: Service Date/Time: November 16:31 - CONCLUSION: No acute disease. Gera Hoffman MD Carotid Artery Ultrasound 11/23/16 0000 Signed Impressions: Service Date/Time: November 23:03 - CONCLUSION: 1. Patent carotid arteries bilaterally. 2. Antegrade flow involving both vertebral arteries. Jose Campos Jr., MD Brain MRI 11/23/16 0000 Signed Impressions: Service Date/Time: November 22:17 - CONCLUSION: 1. Small subcentimeter acute lacunar infarct left basal ganglia. 2. Multiple small remote infarcts involving right occipital lobe, left frontal lobe and left parietal lobe. 3. Moderate chronic white matter ischemic change. Benoit Ruth MD Objective Remarks GENERAL: Well-nourished, well-developed pleasant obese middle aged female patient in [facility]. SKIN: Warm and dry. No rash. HEENT: Normocephalic. Atraumatic. Pupils equal and round. No scleral icterus. No injection or drainage. Mucous membranes pink and moist. NECK: Supple. Trachea midline. CARDIOVASCULAR: Regular rate and rhythm. S1, S2 noted. No murmur appreciated. RESPIRATORY: No accessory muscle use. Clear to auscultation. Breath sounds equal bilaterally. GASTROINTESTINAL: Abdomen soft, non-tender, nondistended. Normoactive bowel sounds x4. MUSCULOSKELETAL: No obvious deformities. Extremities without clubbing, cyanosis , or edema. NEUROLOGICAL: Awake and alert. No obvious cranial nerve deficits. Motor grossly within normal limits. 5/5 muscle strength in bilateral upper and lower extremities. Normal speech. No facial droop, lid lag, tongue deviation. PSYCHIATRIC: Appropriate mood and affect; insight and judgment normal. A/P Problem List: (1) Acute lacunar infarction ICD Code: I63.9 Status: Acute (2) Headache ICD Code: R51 Status: Acute (3) Leukocytosis ICD Code: D72.829 Status: Acute (4) Hyperglycemia ICD Code: R73.9 Status: Acute (5) Type 2 diabetes mellitus ICD Code: E11.9 Status: Chronic (6) Acute renal insufficiency ICD Code: N28.9 Status: Acute Assessment and Plan 56 year-old female with a history of CVA, hyperlipidemia, depression and hypertension who presented to the emergency room for evaluation of headache with visual impairment on 11/23/2016. CVA - Acute Lacunar Infarct Headache with visual impairment - Head CT images reviewed, shows bilateral old basal ganglia and thalamus lacunar type infarct; Old right DECK HAND infarct (might produce left visual field deficit). No acute findings - Brain MRI images reviewed, shows small subcentimeter acute lacunar infarct L basal ganglia; multiple small remote infarcts R occipital, L front, L parietal - Monitor on telemetry, NIHSS, Neuro checks, kept HOB x24 hrs flat to promote cerebral perfusion, allow permissive hypertension for now - OT, PT, and ST - Check echocardiogram - Carotid ultrasound unremarkable - Lipid profile with Triglycerides 207, Cholesterol 201, LDL 130 (goal < 70) and hemoglobin A1c 11.8 - Check LFTs and start Lipitor 80mg hs - Consults stroke Navigator, rehab medicine - Neurology consultation, Dr Eli appreciate recs - Heparin drip, per Neuro: continue coumadin; bridge with aspirin until INR > 1.8, then stop aspirin and hep subq.Monitor INR, pharm consult for coumadin - Neuro requests RHEA, consulted cardiology, plan for RHEA on Sunday - hypercoagulable work up in process - No need to hold anticoagulation before RHEA Leukocytosis- stress response versus UTI - WBC 14.0 with elevated neutrophils - Abnormal urinalysis, see below - Repeat CBC in a.m. and follow trends UTI - urine culture with Group B Strep - patient with PCN allergy, will start Ciprofloxacin 500mg po q12h x3days - follow final urine culture Diabetes Mellitus, diagnosed this admission - Blood glucose 324, Hemoglobin A1c- 11.8 - Accu-Cheks and cover with NovoLog sliding scale coverage - Hypoglycemia treatment protocol ordered - diabetic diet - 1999 ADA conservative carbs - still uncontrolled, increased SSI to medium dose and start Levemir 10u hs - Consult clinical systems educator and program strategist JOSETTE - BUN 14, creatinine 1.24, estimated GFR 45 - s/p IVF NS boluses totaling 2 liters in ER - Monitor I and Os qshift - Repeat BMP in a.m. and follow trends in renal indices - Avoid nephrotoxins DVT prophylaxis - heparin DC when improved and cleared by consultants. Poss Sunday after RHEA presumed is negative and if INR > 1.8 Patient also says she is comfortable and knows how to self administer heprin or lovenox shots. Problem Qualifiers (1) Headache: Qualified Code: R51 - Acute nonintractable headache, unspecified headache type (2) Type 2 diabetes mellitus: Zari Fernandez MD Nov 27, 2016 14:14
[2016-11-27 16:13] VITALS: BP 185/100; PULSE 82; RESP 20; TEMP 96.3; O2SAT 97
[2016-11-27] MEDS ORDERED: METOPROLOL TARTRATE 25 MG TAB PO ONE (16:15)
[2016-11-27] MEDS ORDERED: METOPROLOL TARTRATE 25 MG TAB PO PRN (16:15)
[2016-11-27] MEDS ORDERED: PILL SPLITTER OTHER PRN (16:30)
[2016-11-27] MEDS: WARFARIN SOD 7.5 MG TAB PO SCH (17:08)
[2016-11-27 17:50] LABS: THROMBIN TIME FOR LA ND sec (13-19)
[2016-11-27 20:00] VITALS: BP 162/88; PULSE 71; RESP 18; TEMP 99; O2SAT 94
[2016-11-27] MEDS: INSULIN DETEMIR 100 UNITS/ML VIAL SQ SCH (22:48)
[2016-11-27] MEDS: ATORVASTATIN 80 MG TAB PO SCH (22:50)
[2016-11-28] VITALS: BP 128/87; PULSE 65; RESP 20; TEMP 98.4; O2SAT 95
[2016-11-28 04:00] VITALS: BP 137/61; PULSE 72; RESP 20; TEMP 97.2; O2SAT 96
[2016-11-28] MEDS: INSULIN ASPART SUPPLEMENTAL SCALE SQ SCH ×2 (06:27→11:19)
[2016-11-28 07:30] LABS: INTERNATIONAL NORMALIZED RATIO 1.3 RATIO; PROTHROMBIN TIME - PATIENT 14.6 SEC (9.8-11.6)
[2016-11-28 08:00] VITALS: BP 197/80; PULSE 75; RESP 18; TEMP 96.9; O2SAT 95
--- NOTE | 2016-11-28 08:16 | HHI.PR ---
Subjective Remarks INR is 1.3 today. Patient wants to go home and is comfortable to self administer shots of lovenox and insulin. No new deficit. Denies chest pain , n/v/d/c. Objective Vitals Vital Signs Date Time Temp Pulse Resp B/P Pulse Ox O2 Delivery O2 Flow Rate FiO2 11/28/16 04:00 97.2 72 20 137/61 96 11/28/16 00:00 98.4 65 20 128/87 95 11/27/16 20:00 99.0 71 18 162/88 94 11/27/16 16:13 96.3 82 20 185/100 97 I/O 11/27/16 11/27/16 11/27/16 11/28/16 11/28/16 11/28/16 07:00 15:00 23:00 07:00 15:00 23:00 Intake Total 1080 ml Balance 1080 ml Intake Oral 1080 ml # Voids 3 # Bowel Movements 0 Result Diagram: 11/26/16 0649 Imaging Last Impressions Lower Extremity Ultrasound 11/24/16 0000 Signed Impressions: Service Date/Time: Thursday, November 24, 2016 00:59 - CONCLUSION: Normal examination. Jose Campos Jr., MD Head Magnetic Resonance Angiography 11/24/16 0000 Signed Impressions: Service Date/Time: Thursday, November 24, 2016 11:24 - CONCLUSION: 1. No large or central vessel occlusion identified. 2. Patchy areas of signal dropout in the left M1 segment and the posterior cerebrals bilaterally probably related to motion artifact. If symptoms persist, CT angiography could be performed for more definitive assessment Elias Bowen MD Head CT 11/23/16 1620 Signed Impressions: Service Date/Time: November 16:50 - CONCLUSION: 1. Chronic changes including periventricular small vessel ischemic demyelination in bilateral old basal ganglia and thalamic lacunar type infarct. 2. Old right MORTICIAN INVESTIGATOR infarct. This could produce a left visual field deficit which may explain current clinical symptoms. 3. No acute intracranial process. Vlad Gonzales MD Chest X-Ray 11/23/161619 Signed Impressions: Service Date/Time: November 16:31 - CONCLUSION: No acute disease. Gera Hoffman MD Carotid Artery Ultrasound 11/23/16 0000 Signed Impressions: Service Date/Time: November 23:03 - CONCLUSION: 1. Patent carotid arteries bilaterally. 2. Antegrade flow involving both vertebral arteries. Jose Campos Jr., MD Brain MRI 11/23/16 0000 Signed Impressions: Service Date/Time: November 22:17 - CONCLUSION: 1. Small subcentimeter acute lacunar infarct left basal ganglia. 2. Multiple small remote infarcts involving right occipital lobe, left frontal lobe and left parietal lobe. 3. Moderate chronic white matter ischemic change. Benoit Ruth MD Objective Remarks GENERAL: Well-nourished, well-developed pleasant obese middle aged female patient in [facility]. SKIN: Warm and dry. No rash. HEENT: Normocephalic. Atraumatic. Pupils equal and round. No scleral icterus. No injection or drainage. Mucous membranes pink and moist. NECK: Supple. Trachea midline. CARDIOVASCULAR: Regular rate and rhythm. S1, S2 noted. No murmur appreciated. RESPIRATORY: No accessory muscle use. Clear to auscultation. Breath sounds equal bilaterally. GASTROINTESTINAL: Abdomen soft, non-tender, nondistended. Normoactive bowel sounds x4. MUSCULOSKELETAL: No obvious deformities. Extremities without clubbing, cyanosis , or edema. NEUROLOGICAL: Awake and alert. No obvious cranial nerve deficits. Motor grossly within normal limits. 5/5 muscle strength in bilateral upper and lower extremities. Normal speech. No facial droop, lid lag, tongue deviation. PSYCHIATRIC: Appropriate mood and affect; insight and judgment normal. A/P Problem List: (1) Acute lacunar infarction ICD Code: I63.9 Status: Acute (2) Headache ICD Code: R51 Status: Acute (3) Leukocytosis ICD Code: D72.829 Status: Acute (4) Hyperglycemia ICD Code: R73.9 Status: Acute (5) Type 2 diabetes mellitus ICD Code: E11.9 Status: Chronic (6) Acute renal insufficiency ICD Code: N28.9 Status: Acute Assessment and Plan 56 year-old female with a history of CVA, hyperlipidemia, depression and hypertension who presented to the emergency room for evaluation of headache with visual impairment on 11/23/2016. CVA - Acute Lacunar Infarct Headache with visual impairment - Head CT images reviewed, shows bilateral old basal ganglia and thalamus lacunar type infarct; Old right MORTICIAN INVESTIGATOR infarct (might produce left visual field deficit). No acute findings - Brain MRI images reviewed, shows small subcentimeter acute lacunar infarct L basal ganglia; multiple small remote infarcts R occipital, L front, L parietal - Monitor on telemetry, NIHSS, Neuro checks, kept HOB x24 hrs flat to promote cerebral perfusion, allow permissive hypertension for now - OT, PT, and ST - Check echocardiogram - Carotid ultrasound unremarkable - Lipid profile with Triglycerides 207, Cholesterol 201, LDL 130 (goal < 70) and hemoglobin A1c 11.8 - Check LFTs and start Lipitor 80mg hs - Consults stroke Navigator, rehab medicine - Neurology consultation, Dr Eli appreciate recs - Heparin drip, per Neuro: continue coumadin; bridge with aspirin until INR > 1.8, then stop aspirin and hep subq.Monitor INR, pharm consult for coumadin - Neuro requests RHEA, consulted cardiology, plan for RHEA on Sunday - hypercoagulable work up in process - No need to hold anticoagulation before RHEA Leukocytosis- stress response versus UTI - WBC 14.0 with elevated neutrophils - Abnormal urinalysis, see below - Repeat CBC in a.m. and follow trends UTI - urine culture with Group B Strep - patient with PCN allergy, will start Ciprofloxacin 500mg po q12h x3days - follow final urine culture Diabetes Mellitus, diagnosed this admission - Blood glucose 324, Hemoglobin A1c- 11.8 - Accu-Cheks and cover with NovoLog sliding scale coverage - Hypoglycemia treatment protocol ordered - diabetic diet - 1999 ADA conservative carbs - still uncontrolled, increased SSI to medium dose and start Levemir 10u hs - Consult clinical document improvement educator and zoning assistant JOSETTE - BUN 14, creatinine 1.24, estimated GFR 45 - s/p IVF NS boluses totaling 2 liters in ER - Monitor I and Os qshift - Repeat BMP in a.m. and follow trends in renal indices - Avoid nephrotoxins DVT prophylaxis - heparin DC when improved and cleared by consultants. Poss Sunday after RHEA presumed is negative and if INR > 1.8 Patient also says she is comfortable and knows how to self administer heprin or lovenox shots. Problem Qualifiers (1) Headache: Qualified Code: R51 - Acute nonintractable headache, unspecified headache type (2) Type 2 diabetes mellitus: Zari Fernandez MD Nov 28, 2016 08:16
--- NOTE | 2016-11-28 08:28 | HHI.PR ---
Review/Management Diagnosis/Plan: (1) Acute ischemic left MCA stroke Plan: multiple strokes, bihemispheric failed plavix previous w/u in [place] negative, including bubble jet study i'm concerned about a hypercoag state/embolic cause: elevated factor 8 level noted thus far, rest of labs pending uncontrolled dm hyperlipidemia recs neuro stable lizette- per cardiology- pending hypercoag panel-pending- elevated factor 8 d/c planning from neuro in am after lizette and outpatient f/u in 3-4 weeks; will need pcp/card to follow inr levels p.t. wt loss/exercise/dm, htn/lipid control, ldl <70 (2) Chronic ischemic right DIRECTOR SALES SUPPORT stroke Plan: 2013 tx'd in [facility] on plavix (3) Chronic ischemic left DIRECTOR SALES SUPPORT stroke (4) Type 2 diabetes mellitus Plan: hba1c 11 uncontrolled (5) HTN (hypertension) (6) Depression Plan: post-stroke related Subjective Subjective Comments No acute events reported No headache No chest pain No dyspnea Active Medications Current Medications Medications (Trade) Dose Ordered Sig/Janice Route Start Time Stop Time Status Last Admin (NS Flush) 2 ml BID IV FLUSH 11/23/16 21:00 11/27/16 21:00 (NS Flush) 2 ml UNSCH PRN IV FLUSH 11/23/16 19:45 (D50w (Vial) Inj) 25 ml UNSCH PRN IV PUSH 11/23/16 19:45 (Glucagon Inj) 1 mg UNSCH PRN OTHER 11/23/16 19:45 Aspirin 325 mg 325 mg DAILY PO 11/24/16 09:00 11/27/16 09:51 (Coumadin Consult Pharmacy) 0 ml @ 0 mls/hr UNSCH XX 11/24/16 08:15 (Heparin Inj) 5,000 units BID SQ 11/24/16 09:00 11/27/16 22:49 (Lexapro) 20 mg DAILY PO 11/24/16 15:00 11/27/16 09:51 (Lipitor) 80 mg HS PO 11/24/16 21:00 11/27/16 22:50 (Levemir Inj) 10 units HS SQ 11/24/16 21:00 11/27/16 22:48 (Folate) 1 mg DAILY PO 11/26/16 10:30 11/27/16 09:51 (Lopressor) 12.5 mg Q8HR PRN PO 11/27/16 16:15 (Pill Splitter) 1 ea UNSCH PRN OTHER 11/27/16 16:30 (Coumadin) 10 mg DAILY@1600 PO 11/28/16 16:00 UNV Allergies Allergies Coded Allergies Lisinopril (Unverified Allergy, Mild, 11/23/16) Morphine (Unverified Allergy, Mild, 11/23/16) Penicillin (Unverified Allergy, Mild, 11/23/16) Review of Systems All other ROS: ROS reviewed as documented in chart Exam I&O / VS 11/27/16 11/27/16 11/28/16 15:00 23:00 07:00 Intake Total 1080 ml Balance 1080 ml Intake Oral 1080 ml # Voids 3 # Bowel Movements 0 Vital Signs Date Time Temp Pulse Resp B/P Pulse Ox O2 Delivery O2 Flow Rate FiO2 11/28/16 08:00 96.9 75 18 197/80 95 11/28/16 04:00 97.2 72 20 137/61 96 11/28/16 00:00 98.4 65 20 128/87 95 11/27/16 20:00 99.0 71 18 162/88 94 11/27/16 16:13 96.3 82 20 185/100 97 General: Alert and Oriented, No acute distress Eye: EOMI Respiratory: Non-labored respirations Cardiology: Normal rate Neurologic: Alert, Oriented, Normal sensory, Normal motor, Normal DTR's Psychiatric: Cooperative, Appropriate mood & affect, Normal judgement, Non- suicidal Exam Comments ox 3. articulate, follows, no aphasia,dense left HH, face sym, no focal weakness , msr sym, Objective Micro and Labs Laboratory Tests Test 11/28/16 06:16 Prothrombin Time 14.6 Prothromb Time International 1.3 Ratio Date/Time Procedure Status Source Growth 11/23/16 17:16 Urine Culture - Final Complete Urine Catheterized Urine Group B Beta Strep Problem Qualifiers (1) Type 2 diabetes mellitus: (2) HTN (hypertension): Qualified Code: I10 - Essential hypertension (3) Depression: Qualified Code: F32.9 - Depression, unspecified depression type Abdoulaye Wong MD Nov 28, 2016 08:28
[2016-11-28] MEDS: HEPARIN SODIUM - SQ 10,000 UNITS/ML VIAL SQ SCH (09:34)
[2016-11-28] MEDS: ASPIRIN EC 325 MG TABEC PO SCH (09:38)
[2016-11-28] MEDS: ESCITALOPRAM OXALATE 20 MG TAB PO SCH (09:38)
[2016-11-28] MEDS: FOLIC ACID 1 MG TAB PO SCH (09:38)
[2016-11-28] MEDS: SODIUM CHLORIDE 0.9% FLUSH 10 ML FLUSH IV FLUSH SCH (09:40)
--- NOTE | 2016-11-28 09:50 | ETE ---
Study Study Date:11/27/2016 STUDY CONCLUSIONS SUMMARY - Left ventricle: The cavity size was normal. Wall thickness was normal. Systolic function was normal. Wall motion was normal; there were no regional wall motion abnormalities. - Aortic valve: No evidence of vegetation. - Mitral valve: No evidence of vegetation. - Left atrium: The atrium was suspected to be possibly mildly dilated. No evidence of thrombus in the atrial cavity or appendage. - Right atrium: No evidence of thrombus in the atrial cavity or appendage. - Atrial septum: Echo contrast study showed no fxhcy-us-hhmd atrial level shunt, at baseline or with provocation. - Tricuspid valve: No evidence of vegetation. - Pulmonic valve: No evidence of vegetation. If LV function is below 40, please consider prescribing an ACEI or ARB or document rationale for non-use. PROCEDURE DATA Consent: The risks, benefits, and alternatives to the procedure were explained to the patient and informed consent was obtained. Procedure: Initial setup. The patient was brought to the laboratory in the fasting state. Intravenous access was obtained. Surface ECG leads and pulse oximetric signals were monitored. Sedation. Conscious sedation was administered by cardiology staff. Transesophageal echocardiography. Topical anesthesia was obtained using viscous lidocaine. A transesophageal probe was inserted by the attending narrow fabric calenderer. A bubble study was performed. Image quality was fair. Study completion: All IVs inserted during the procedure were removed. The patient tolerated the procedure well. There were no complications. Transesophageal echocardiography. 2D, complete spectral Doppler, and color Doppler. CARDIAC ANATOMY LEFT VENTRICLE: The cavity size was normal. Wall thickness was normal. Systolic function was normal. Wall motion was normal; there were no regional wall motion abnormalities. AORTIC VALVE: Structurally normal valve. Trileaflet; normal thickness leaflets. Cusp separation was normal. No evidence of vegetation. Doppler: No significant regurgitation. Aorta: - There was no atheroma. There was no evidence for dissection. Aortic root: The aortic root was not dilated. Ascending aorta: The ascending aorta was normal in size. Aortic arch: The aortic arch was normal in size. Descending aorta: The descending aorta was normal in size. MITRAL VALVE: Structurally normal valve. Leaflet separation was normal. No evidence of vegetation. Doppler: No significant regurgitation. LEFT ATRIUM: The atrium was suspected to be possibly mildly dilated. No evidence of thrombus in the atrial cavity or appendage. The appendage was not well visualized, morphologically a left appendage, multilobulated, and of normal size. Emptying velocity was normal. ATRIAL SEPTUM: Echo contrast study showed no sctzj-gk-vmbf atrial level shunt, at baseline or with provocation. RIGHT VENTRICLE: The cavity size was normal. Wall thickness was normal. Systolic function was normal. PULMONIC VALVE: Structurally normal valve. No evidence of vegetation. TRICUSPID VALVE: Structurally normal valve. Leaflet separation was normal. No evidence of vegetation. Doppler: No significant regurgitation. PULMONARY ARTERY: The main pulmonary artery was normal-sized. RIGHT ATRIUM: The atrium was normal in size. No evidence of thrombus in the atrial cavity or appendage. The appendage was morphologically a right appendage. PERICARDIUM: There was no pericardial effusion. Prepared and signed by Seun Turner [id number]
[2016-11-28] MEDS ORDERED: ENOX40P SQ (11:56)
[2016-11-28] MEDS ORDERED: LIPI80TA PO (11:56)
[2016-11-28] MEDS ORDERED: METO25TA3 PO (11:56)
[2016-11-28] MEDS ORDERED: WARF-21 PO (11:56)
[2016-11-28] MEDS ORDERED: ASPI325T PO (11:56)
--- NOTE | 2016-11-28 11:56 | HHI.DS ---
Discharge Summary Admission Date Nov 23, 2016 at 23:49 Discharge Date: Nov 28, 2016 Admitting Diagnosis TIA, headache (1) Acute lacunar infarction ICD Code: I63.9 Diagnosis: Principal (2) Uncontrolled diabetes mellitus ICD Code: E11.65 Diagnosis: Principal (3) Headache ICD Code: R51 Diagnosis: Secondary (4) Leukocytosis ICD Code: D72.829 Diagnosis: Secondary (5) Hyperglycemia ICD Code: R73.9 Diagnosis: Secondary (6) Type 2 diabetes mellitus ICD Code: E11.9 Diagnosis: Secondary (7) Acute renal insufficiency ICD Code: N28.9 Diagnosis: Secondary Procedures RHEA 11/27/[address] Johnny Kohli cardio Brief History - From Admission Ms. Galeana is a 56 year-old female with a history of CVA, hyperlipidemia, depression and hypertension who presented to the emergency room for evaluation of headache with visual impairment on 11/23/2016. Head CT shows chronic changes including periventricular small vessel ischemic demyelination and bilateral old basal ganglia and thalamus lacunar type infarct. Old right PHOTOGRAPHER HELPER infarct (might produce left visual field deficit). No acute intracranial process. The patient is seen in the CDU. She and her provided the history. The patient woke up with severe posterior headache yesterday that progressively got worse and not better. She reports that because of a prior stroke, she had lost her left peripheral vision. She said her left peripheral vision was gone for 3 years and today it came back after she came to the hospital and while she was sitting in the waiting room. The patient's also reports that the patient slept all day on Sunday and Sunday. He says about a month ago, she had some trouble speaking and a syncopal episode. There is also report of loose stools for about 2 weeks. The patient is not sure if her stools are black or red colored. She denies any recent antibiotic usage. She denies hematuria, frequency, or dysuria. She does report some urgency with incontinence couple of nights ago which has now resolved. Denies fever but states she's felt warm. Denies localized weakness, paresthesias, chest pain, shortness of breath. She had dry heaves 2 days ago. Denies any history of diabetes, coronary artery disease liver or kidney problems , cancers, thyroid problems, seizures. She reports asthma without exacerbation since childhood. Was driven to ER in private vehicle. CBC/BMP: 11/26/16 0649 Significant Findings Laboratory Tests Test 11/26/16 11/27/16 11/28/16 06:49 07:35 06:16 Mean Corpuscular Volume 75.4 FL (80.0-100.0) Mean Corpuscular Hemoglobin 24.3 PG (27.0-34.0) Prothrombin Time 12.8 SEC 14.6 SEC (9.8-11.6) (9.8-11.6) Imaging Last Impressions Lower Extremity Ultrasound 11/24/16 0000 Signed Impressions: Service Date/Time: Thursday, November 24, 2016 00:59 - CONCLUSION: Normal examination. Jose Campos Jr., MD Head Magnetic Resonance Angiography 11/24/16 0000 Signed Impressions: Service Date/Time: Thursday, November 24, 2016 11:24 - CONCLUSION: 1. No large or central vessel occlusion identified. 2. Patchy areas of signal dropout in the left M1 segment and the posterior cerebrals bilaterally probably related to motion artifact. If symptoms persist, CT angiography could be performed for more definitive assessment Elias Bowen MD Head CT 11/23/16 1620 Signed Impressions: Service Date/Time: November 16:50 - CONCLUSION: 1. Chronic changes including periventricular small vessel ischemic demyelination in bilateral old basal ganglia and thalamic lacunar type infarct. 2. Old right PHOTOGRAPHER HELPER infarct. This could produce a left visual field deficit which may explain current clinical symptoms. 3. No acute intracranial process. Vlad Gonzales MD Chest X-Ray 11/23/16 1620 Signed Impressions: Service Date/Time: November 16:31 - CONCLUSION: No acute disease. Gera Hoffman MD Carotid Artery Ultrasound 11/23/16 0000 Signed Impressions: Service Date/Time: November 23:03 - CONCLUSION: 1. Patent carotid arteries bilaterally. 2. Antegrade flow involving both vertebral arteries. Jose Campos Jr., MD Brain MRI 11/23/16 0000 Signed Impressions: Service Date/Time: November 22:17 - CONCLUSION: 1. Small subcentimeter acute lacunar infarct left basal ganglia. 2. Multiple small remote infarcts involving right occipital lobe, left frontal lobe and left parietal lobe. 3. Moderate chronic white matter ischemic change. Benoit Ruth MD PE at Discharge GENERAL: Well-nourished, well-developed pleasant obese middle aged female patient in [facility]. SKIN: Warm and dry. No rash. HEENT: Normocephalic. Atraumatic. Pupils equal and round. No scleral icterus. No injection or drainage. Mucous membranes pink and moist. NECK: Supple. Trachea midline. CARDIOVASCULAR: Regular rate and rhythm. S1, S2 noted. No murmur appreciated. RESPIRATORY: No accessory muscle use. Clear to auscultation. Breath sounds equal bilaterally. GASTROINTESTINAL: Abdomen soft, non-tender, nondistended. Normoactive bowel sounds x4. MUSCULOSKELETAL: No obvious deformities. Extremities without clubbing, cyanosis , or edema. NEUROLOGICAL: Awake and alert. No obvious cranial nerve deficits. Motor grossly within normal limits. 5/5 muscle strength in bilateral upper and lower extremities. Normal speech. No facial droop, lid lag, tongue deviation. PSYCHIATRIC: Appropriate mood and affect; insight and judgment normal. Pt update on day of discharge Patient feels much better, wants to go home. She knows how to self administer lovenox and insulin. She feels comfortable to go home and follow up as OP with her pCP . Says vision has imporoved. No n/v/d/c. No new motor /sensory deficit. no fever or chills. No urinary complaints. RHEA negative, findings discussed with the patient. Hospital Course 56 year-old female with a history of CVA, hyperlipidemia, depression and hypertension who presented to the emergency room for evaluation of headache with visual impairment on 11/23/2016. CVA - Acute Lacunar Infarct Headache with visual impairment - Head CT images reviewed, shows bilateral old basal ganglia and thalamus lacunar type infarct; Old right PHOTOGRAPHER HELPER infarct (might produce left visual field deficit). No acute findings - Brain MRI images reviewed, shows small subcentimeter acute lacunar infarct L basal ganglia; multiple small remote infarcts R occipital, L front, L parietal - Monitor on telemetry, NIHSS, Neuro checks, kept HOB x24 hrs flat to promote cerebral perfusion, allow permissive hypertension for now - OT, PT, and ST - Check echocardiogram - Carotid ultrasound unremarkable - Lipid profile with Triglycerides 207, Cholesterol 201, LDL 130 (goal < 70) and hemoglobin A1c 11.8 - Check LFTs and start Lipitor 80mg hs - Consults stroke Navigator, rehab medicine - Neurology consultation, Dr Eli appreciate recs - Heparin drip, per Neuro: continue coumadin; bridge with aspirin until INR > 1.8, then stop aspirin and hep subq.Monitor INR, pharm consult for coumadin - Neuro requests RHEA, consulted cardiology, plan for RHEA on Sunday - hypercoagulable work up in process - No need to hold anticoagulation before RHEA Leukocytosis- stress response versus UTI - WBC 14.0 with elevated neutrophils - Abnormal urinalysis, see below - Repeat CBC in a.m. and follow trends UTI - urine culture with Group B Strep - patient with PCN allergy, will start Ciprofloxacin 500mg po q12h x3days - follow final urine culture Diabetes Mellitus, diagnosed this admission - Blood glucose 324, Hemoglobin A1c- 11.8 - Accu-Cheks and cover with NovoLog sliding scale coverage - Hypoglycemia treatment protocol ordered - diabetic diet - 1999 ADA conservative carbs - still uncontrolled, increased SSI to medium dose and start Levemir 10u hs - Consult conduit worker and tool maker bench JOSETTE - BUN 14, creatinine 1.24, estimated GFR 45 - s/p IVF NS boluses totaling 2 liters in ER - Monitor I and Os qshift - Repeat BMP in a.m. and follow trends in renal indices - Avoid nephrotoxins DVT prophylaxis - heparin DC when improved and cleared by consultants. Poss Sunday after RHEA presumed is negative and if INR > 1.8 Patient also says she is comfortable and knows how to self administer heprin or lovenox shots. Pt Condition on Discharge: Stable Discharge Disposition: Disch w/ Home Health Serv Discharge Time: > 30 minutes Discharge Instructions DIET: Follow Instructions for: Heart Healthy Diet, Diabetic Diet, Coumadin ( Warfarin) Diet Speech Therapy-Diet Recommends: Regular Activities you can perform: Regular-No Restrictions Follow up Referrals: Neurology - 1 Week PCP Follow-up - 12/03/16 with Abdoulaye Wong MD New Medications: Aspirin (Aspirin) 325 Mg Tab 325 MG PO DAILY Blood Clot Prevention #30 Ref 0 TAB Blood Glucose Monitoring W/Device (Glucocom Blood Glucose Mo W/Device) 1 Kit Kit 1 KIT .ROUTE DIRECTED Blood Sugar Management #1 KIT Enoxaparin Inj (Lovenox Inj) 40 Mg/0.4 Ml Syr 40 MG SQ DAILY Blood Clot Prevention #10 Ref 0 SYRINGE Glucocom Test Strips (Glucocom Test Strips) 1 Lula Lula 1 EA .ROUTE DIRECTED Blood Sugar Management #100 BOX Insulin Aspart Inj (Novolog Inj) 1,000 Unit/10 Ml Vial 1-9 UNITS SQ ACHS Max dose at bedtime:( )units; sugars less than 70,(0)units; sugars 150-199,(1) unit; sugars 200-249,(3) units; sugars 250-299,(5) units; sugars 300-349,(7) units; sugars greater than 349,(9) units Blood Sugar Management #10 Ref 0 ML Insulin Detemir Inj (Levemir Inj) 1,000 unit/ 10 ML Vial 10 UNITS SQ HS Do not mix with any other Insulin. Blood Sugar Management #30 Ref 0 VIAL Insulin Syringe/U-100/31G X 5/16" 1 ml (Insulin Syringe/U-100/31G X 5/16" 1 ml) 1 Mis Mis 1 EA .ROUTE DIRECTED Blood Sugar Management #1 Ref 0 BOX Lancets (Lancets) 1 Mis Mis 1 EA .ROUTE DIRECTED Blood Sugar Management #1 Ref 0 BOX Parenteral Therapy Supplies (Sharpsafety Sharps Contai) 1 Mis Mis 1 EA .ROUTE DIRECTED #1 Ref 0 EA Warfarin (Warfarin) 7.5 Mg Tab 7.5 MG PO DAILY Blood Clot Prevention #30 Ref 0 TAB Atorvastatin (Lipitor) 80 Mg Tab 80 MG PO HS Cholesterol Management #30 TAB Metoprolol Tartrate (Metoprolol Tartrate) 25 Mg Tab 12.5 MG PO Q8HR PRN SBP>160, DBP>95, HR>65 #60 TAB Continued Medications: Amlodipine (Amlodipine) 10 Mg Tab 10 MG PO DAILY Blood Pressure Management #30 Ref 0 TAB Escitalopram (Escitalopram) 20 Mg Tab 20 MG PO DAILY #30 Ref 0 TAB Discontinued Medications: Clopidogrel (Clopidogrel) 75 Mg Tab 75 MG PO DAILY Blood Clot Prevention #30 Ref 0 TAB Zari Fernandez MD Nov 28, 2016 11:56
[2016-11-28 12:00] VITALS: BP 178/80; PULSE 78; RESP 18; TEMP 97.1; O2SAT 95
[2016-11-28] MEDS ORDERED: LEVEMIR SQ (12:04)
[2016-11-28] MEDS ORDERED: NOVOLOGP2 SQ (12:04)
[2016-11-28] MEDS ORDERED: GLUCTES12 (12:04)
[2016-11-28] MEDS ORDERED: LANCETS1 MI1 (12:04)
[2016-11-28] MEDS ORDERED: GLUCKIT15 (12:04)
[2016-11-28] MEDS ORDERED: BIOM30MI (12:04)
[2016-11-28] MEDS ORDERED: INSU1MIS15 (12:04)
--- NOTE | 2016-11-28 12:12 | HHI.FF ---
Face to Face Verification Diagnosis: (1) TIA (transient ischemic attack) (2) HTN (hypertension) (3) Acute ischemic left MCA stroke (4) Chronic ischemic left [employer] stroke (5) Chronic ischemic right [employer] stroke (6) Anticoagulated on Coumadin (7) Depression (8) Headache (9) Hyperglycemia (10) Acute renal insufficiency (11) Type 2 diabetes mellitus (12) Acute lacunar infarction (13) Uncontrolled diabetes mellitus Home Health Nursing Order: Medical education Signs/symptoms of disease process Diabetic education Medication education-adverse effect Nursing assessment with vital signs Instructions: check INR daily and call her PCP for coumadin adjustments I have seen patient Deanna Galeana on 11/28/16. My clinical findings support the need for the requested home health care services because: Ltd mobility - disease progression I certify that my clinical findings support that this patient is homebound because: Post-op weakness Zari Fernandez MD Nov 28, 2016 12:12
[2016-11-28] MEDS ORDERED: WARFARIN SOD 10 MG TAB PO SCH (16:00)
[2016-11-28 23:55] LABS: PHOSPHATIDYLSERINE AB IGA LESS THAN 20.0 U/mL (()); PHOSPHATIDYLSERINE AB IGM LESS THAN 25.0 U/mL (())
== END 2016-11-28 14:29 | disposition home health service (06) | DRG 65 ==
LOC: NEPC 14:39 → NEDA 19:26 → NEPGCP 21:37 → OBSVTOIN 23:49 → N05A 11-24 19:27
PROVIDERS: ADMIT Hospitalist; ATTEND Hospitalist
PROC: B246ZZ4 Ultrasonography of Right and Left Heart, Transesophageal (ICD-10-PCS; principal; 2016-11-27)
DX: I63.512 Cerebral infarction due to unspecified occlusion or stenosis of left middle cerebral artery (principal); N17.9 Acute kidney failure, unspecified; E11.65 Type 2 diabetes mellitus with hyperglycemia; G37.9 Demyelinating disease of central nervous system, unspecified; N39.0 Urinary tract infection, site not specified; Z68.43 Body mass index [BMI] 50.0-59.9, adult; I10 Essential (primary) hypertension; E78.5 Hyperlipidemia, unspecified; E66.9 Obesity, unspecified; H54.7 Unspecified visual loss; I69.398 Other sequelae of cerebral infarction; R00.0 Tachycardia, unspecified; F32.9 Major depressive disorder, single episode, unspecified; B95.1 Streptococcus, group B, as the cause of diseases classified elsewhere; Z88.0 Allergy status to penicillin; Z88.5 Allergy status to narcotic agent
CPT/HCPCS: 70450; 70544; 70551; 71010; 80048; 80061; 80076; 81001; 81240; 81241; 81291; 82948; 83036; 83090; 84484; 85025; 85027; 85240; 85300; 85303; 85306; 85307; 85597; 85610; 85613; 85652; 85730; 86038; 86140; 86146; 86147; 86148; 87086; 93005; 93306; 93312; 93320; 93325; 93880; 93970; 95819; 96361; 96374; J1644; J1815; J2250; J7030